=== PATIENT | female | born 1955 | race Caucasian/White ===

== ENCOUNTER 2024-05-14 10:30 | Outpatient (AMB) | payer OTHER, SELFPAY ==
[2024-05-14 10:36] VITALS: BP 142/82; PULSE 92; O2SAT 98; BMI 32.1
--- NOTE | 2024-05-14 10:36 | A.OFFVIS_ITS ---
Vital Signs 05/14/24 10:36 Height 5 ft 2.5 in Weight 178 lb 2 oz BMI 32.1 BP 142/82 H Blood Pressure Location Lt brachial Position Sitting Pulse 92 Pulse Source Pulse Oximeter Pulse Oximetry (%) 98 Oxygen Delivery Method Room Air Intake Visit Reasons: Arthralgia/ATC MR RECIEVED Intake Note: Patient presents today for joint pain follow up on joint pain/osteoarthritis. She was last seen on 09/13/23 at [facility] by Dr. Villatoro. Allergies rituximab [From Rituxan] Allergy (Mild, Verified 05/13/24 10:00) Rash chemotherapy Allergy (Mild, Uncoded 05/13/24 10:00) Hives HPI HPI Arthralgia/ATC MR RECIEVED: Details: Doing well. Continues to have swelling in hands. Tolerable. Function is not limited. Right 3rd finger is triggering. Oncologist is monitoring her white cell count very closely. At this time there has been no change in her treatment. She had an infection in her white cell climbed up to 99,000. She will be seeing oncologist in June. Physical Exam Vital Signs: Last Vital Signs Pulse 92 05/14/24 10:36 BP 142/82 H 05/14/24 10:36 Pulse Ox 98 05/14/24 10:36 Oxygen Delivery Method Room Air 05/14/24 10:36 BMI result Body Mass Index 32.1 Const Other: General: Comfortable CVS: RRR Respiratory: clear to auscultation bilaterally. Good respiratory effort Skin: No lesions seen MSK: Triggering of right 3rd finger noted. Tender to palpate palmar aspect of right 3rd MCP with nodule palpated. Chronic synovial thickening right 2nd and 3rd MCP with tenderness on palpation. She has volar subluxation of MCPs with slight ulnar deviation. She is able to health and safety consultant my hands. Shoulder abduction is 160 degrees with good internal and external rotation. Tender to palpate bilateral knees. She has hypertrophy of knee joints. Bilateral Knee flexions are 100 degrees. Bilateral ankle edema. Office Procedures AMB Joint Injection/Aspiration Joint Injection/Aspiration Details: Right 3rd trigger finger Prep: site was prepped using aseptic technique Injected: 10 mg of, Kenalog, with 0.25 mL of and 1% plain lidocaine Procedure: The patient tolerated the procedure well. Postprocedure protocol was discussed with patient. Coding Additional procedure code (CPT) needed (CPT code 06906) AMB Joint Injection/Aspiration Joint Injection/Aspiration Details: Right 3rd MCP Prep: site was prepped using aseptic technique Injected: 10 mg of, Kenalog, with 0.25 mL of and 1% plain lidocaine Procedure: The patient tolerated the procedure well. Postprocedure protocol was discussed with patient. Coding 35765 - Small Joint Procedure code (CPT) selection complete AMB Joint Injection/Aspiration Joint Injection/Aspiration Details: Right 2nd MCP Prep: site was prepped using aseptic technique Injected: 10 mg of, Kenalog, with 0.25 mL of and 1% plain lidocaine Procedure: The patient tolerated the procedure well. Postprocedure protocol was discussed with patient. Coding - Small Joint Procedure code (CPT) selection complete Office Meds lidocaine (PF) 10 mg/mL (1 %) injection solution Performing Provider: Farooq Villatoro MD Performing Location: [facility] Administered by: Farooq Villatoro MD on 05/14/24 21:21 Dose Route Admin Location Dispensed Lot Number Expiration Date [facility] Rn Acute Dialysis 2.5 mg Infiltration 5 mL [id number] HUONS/VGYAAN Kenalog 40 mg/mL suspension for injection Performing Provider: Farooq Villatoro MD Performing Location: [facility] Administered by: Farooq Villatoro MD on 05/14/24 21:21 Dose Route Admin Location Dispensed Lot Number Expiration Date [facility] Rn Acute Dialysis 10 mg Tendon Sheath Inj. 1 mL [id number] [employer] lidocaine (PF) 10 mg/mL (1 %) injection solution Performing Provider: Farooq Villatoro MD Performing Location: [facility] Administered by: Farooq Villatoro MD on 05/14/24 21:33 Dose Route Admin Location Dispensed Lot Number Expiration Date [facility] Rn Acute Dialysis 2.5 mg Infiltration 5 mL [id number] HUONS/VGYAAN Kenalog 40 mg/mL suspension for injection Performing Provider: Farooq Villatoro MD Performing Location: [facility] Administered by: Farooq Villatoro MD on 05/14/24 21:33 Dose Route Admin Location Dispensed Lot Number Expiration Date [facility] Rn Acute Dialysis 10 mg intra-articular 1 mL [id number] [employer] lidocaine (PF) 10 mg/mL (1 %) injection solution Performing Provider: Farooq Villatoro MD Performing Location: [facility] Administered by: Farooq Villatoro MD on 05/14/24 21:33 Dose Route Admin Location Dispensed Lot Number Expiration Date [facility] Rn Acute Dialysis 2.5 mg Infiltration 5 mL [id number] HUJOY/YONATHAN Kenalog 40 mg/mL suspension for injection Performing Provider: Farooq Villatoro MD Performing Location: [facility] Administered by: Farooq Villatoro MD on 05/14/24 21:33 Dose Route Admin Location Dispensed Lot Number Expiration Date [facility] Rn Acute Dialysis 10 mg intra-articular 1 mL [id number] [facility] Assessment & Plan Assessment & Plan (1) Calcium pyrophosphate deposition disease (CPPD): Comment: Crystal proven involving episodic joint pain and swelling of MCPs and left knee. 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 she was unable to tolerate higher dose of colchicine. She has background of CLL with white cell count trending up in the last year. I would avoid DMARD therapy with consideration of her CLL history due to risk of bone marrow suppression. Prednisone has a risk of causing leukocytosis. We discussed trying targeted approach with intra-articular cortisone injections of right 2nd and 3rd MCP. Patient agrees with plan. Code(s): M11.20 - Other chondrocalcinosis, unspecified site Category: Medical Plan: Labs for drug monitoring on colchicine reviewed from 04/05/2024. Lab requisition given to patient to have done at [facility], where she has frequent labs done for CLL monitoring. Continue colchicine 0.6 mg b.i.d. Patient received intra-articular cortisone injections to right 2nd and 3rd MCP Return to clinic in 6 months (2) Trigger finger, right middle finger: Comment: We discussed diagnosis and management. She has history of left 3rd trigger finger, which resolved cortisone injection 2020. Code(s): M65.331 - Trigger finger, right middle finger Category: Medical Plan: Patient received cortisone injection to right 3rd flexor tendon sheath for management of trigger finger Return to clinic in 6 months (3) Other correction (current) drug therapy: Code(s): Z79.899 - Other manager long term care (current) drug therapy Category: Medical Plan: See above Orders: Orders Aspartate Amino Transferase Today Z79.60 - detention (current) use of unspecified immunomodulators and immunosuppressants Complete Blood Count Auto Diff Today Z79.60 - petroleum terminal plant operator (current) use of unspecified immunomodulators and immunosuppressants Alanine Aminotransferase Today Z79.60 - petroleum terminal plant operator (current) use of unspecified immunomodulators and immunosuppressants Alanine Aminotransferase 11/10/24 Z79.60 - petroleum terminal plant operator (current) use of unspecified immunomodulators and immunosuppressants Alanine Aminotransferase 05/09/25 Z79.60 - detention (current) use of unspecified immunomodulators and immunosuppressants Alanine Aminotransferase 11/05/25 Z79.60 - petroleum terminal plant operator (current) use of unspecified immunomodulators and immunosuppressants Creatinine 11/10/24 Z79.60 - detention (current) use of unspecified immunomodulators and immunosuppressants Creatinine 05/09/25 Z79.60 - detention (current) use of unspecified immunomodulators and immunosuppressants Complete Blood Count Auto Diff Today Z79.60 - petroleum terminal plant operator (current) use of unspecified immunomodulators and immunosuppressants Complete Blood Count Auto Diff 11/10/24 Z79.60 - petroleum terminal plant operator (current) use of unspecified immunomodulators and immunosuppressants Complete Blood Count Auto Diff 05/09/25 Z79.60 - detention (current) use of unspecified immunomodulators and immunosuppressants Aspartate Amino Transferase 05/09/25 Z79.60 - detention (current) use of unspecified immunomodulators and immunosuppressants AMB Joint Injection/Aspiration Today M65.331 - Trigger finger, right middle finger AMB Joint Injection/Aspiration Today M11.20 - Other chondrocalcinosis, unspecified site Alanine Aminotransferase Today Z79.60 - petroleum terminal plant operator (current) use of unspecified immunomodulators and immunosuppressants Creatinine Today Z79.60 - detention (current) use of unspecified immunomodulators and immunosuppressants Creatinine Today Z79.60 - detention (current) use of unspecified immunomodulators and immunosuppressants Creatinine 11/05/25 Z79.60 - detention (current) use of unspecified immunomodul ators and immunosuppressants Complete Blood Count Auto Diff 11/05/25 Z79.60 - detention (current) use of unspecified immunomodulators and immunosuppressants Aspartate Amino Transferase Today Z79.60 - detention (current) use of unspecified immunomodulators and immunosuppressants Aspartate Amino Transferase 11/10/24 Z79.60 - petroleum terminal plant operator (current) use of unspecified immunomodulators and immunosuppressants Aspartate Amino Transferase 11/05/25 Z79.60 - petroleum terminal plant operator (current) use of unspecified immunomodulators and immunosuppressants AMB Joint Injection/Aspiration Today M11.20 - Other chondrocalcinosis, unspecified site, Z79.899 - Other correction (current) drug therapy Coding Level of Care Code Est Pt Level 4 (67141) Complex EM visit Add On G2211 Diagnoses Calcium pyrophosphate deposition disease (CPPD) M11.20 Trigger finger, right middle finger M65.331 Other manager long term care (current) drug therapy Z79.899 CPT Codes Coding - 89077 - Small joint: 36519 - Small Joint ([id number]) Coding - 49296 - Small joint: 75982 - Small Joint ([id number])
--- OUTSIDE RECORDS SUMMARY | 2024-05-14 11:32 | XMS_ITS | Clinical Summary ---
Author Organization [facility] Address [address] [place] [address] Care Team Providers Care Fiberglass Roller Name Role Phone Yas Madera MD Primary Care Provider Allergies Active Allergy Reactions Criticality Noted Date Comments Rituximab 11/23/2016 rash Medications Medication Sig Dispensed Refills Start Date End Date Status levothyroxine (SYNTHROID, LEVOXYL) tablet 75 mcg Take 1 tablet (75 mcg total) by mouth every morning on an empty stomach. 0 Active Vitamin D, Cholecalciferol, 1000 UNITS CAPS Take 1,000 Units by mouth daily. 0 Active lisinopril (PRINIVIL,ZESTRIL) tablet 30 mg Take 1 tablet (30 mg total) by mouth daily. 0 Active hydrochlorothiazide (HYDRODIURIL) tablet 25 mg Take 1 tablet (25 mg total) by mouth daily. 0 Active atorvastatin (LIPITOR) tablet 10 mg Take 1 tablet (10 mg total) by mouth every evening. 0 Active Loratadine 10 MG CAPS Take by mouth. 0 Active metFORMIN (GLUCOPHAGE) tablet 1000 mg Take 1 tablet (1,000 mg total) by mouth 2 (two) times a day with meals. 0 Active colchicine 0.6 MG tablet Take 1 tablet (0.6 mg total) by mouth daily. 0 Active PARoxetine (PAXIL) 20 MG tablet TAKE ONE TABLET BY MOUTH EVERY DAY 90 tablet 3 09/05/2023 Active ibrutinib (IMBRUVICA) 420 MG tablet Take 1 tablet (420 mg total) by mouth daily 30 tablet 5 09/26/2023 Active Active Problems Problem Noted Date Diagnosed Date Hypokalemia 03/03/2022 Type II or unspecified type diabetes mellitus with renal manifestations, not stated as uncontrolled(250.40) 07/06/2017 Generalized edema 11/10/2016 Urticaria 10/19/2016 CLL (chronic lymphocytic leukemia) 10/13/2016 Osteoarthritis of both knees 11/20/2015 Overview: Overview: R > L Osteopenia 11/20/2015 Overview: Overview: BMD 01/29/14 2019- unchanged Vitamin D deficiency 11/20/2015 HTN (hypertension) 08/24/2015 Hyperlipidemia 08/24/2015 Hypothyroidism 08/24/2015 Family History Medical History Relation Name Comments Cancer Father Relation Name Status Comments Father Social History Tobacco Use Types Packs/Day Years Used Date Smoking Tobacco: Former Smokeless Tobacco: Never Alcohol Use Standard Drinks/Week Comments No 0 (1 standard drink = 0.6 oz pur e alcohol) Sex and Gender Information Value Date Recorded Sex Assigned at Not on file Gender Identity Not on file Sexual Orientation Not on file Job Start Date Occupation Industry Not on file Not on file Not on file Last Filed Vital Signs Vital Sign Reading Time Taken Comments Blood Pressure 149/74 12/20/2023 10:40 AM EDT Pulse 96 12/20/2023 10:40 AM EDT Temperature 36.6 ??C (97.8 ??F) 12/20/2023 10:40 AM E DT Respiratory Rate - - Oxygen Saturation 99% 12/20/2023 10:40 AM EDT Inhaled Oxygen Concentration - - Weight 82.7 kg (182 lb 6.4 oz) 12/20/2023 10:40 AM EDT Height 162.6 cm (5' 4 ) 12/20/2023 10:40 AM EDT Body Mass Index 31.31 12/20/2023 10:40 AM EDT Plan of Treatment Health Maintenance Due Date Last Done Comments Hepatitis C Screening 1953 Depression Screening 1965 BMI Counseling 11/22/1971 Preventative Health Evaluation 11/22/1971 Shingrix-Zoster Vaccine (1 of 2) 1972 Colon Cancer Screening (Colonoscopy) 1998 Breast Cancer Screening (Mammogram) 11/22/2003 RSV Adult > 60+ Yrs or (1 - Risk 60-74 years 1-dose series) 2013 Fall Risk Assessment 2018 Osteoporosis Screening (DEXA Scan) 2018 COVID-19 Vaccine ( season) 2023 04/13/2021, 09/29/2020, 09/08/2020 Influenza Vaccine (#1) 2023 3, 02/09/2021, 03/06/2019, Additional history exists DTap / Tdap / Td (2 - Td or Tdap) 12/01/2025 12/02/2015 Pneumococcal Vaccine Completed 09/09/2022, 11/30/19 19 Hepatitis B Vaccines Aged Out No long er eligible based on patient's age to complete this topic RSV Ped < 20 months Aged Out No longe r eligible based on patient's age to complete this topic Care Teams Fiberglass Roller Relationship Specialty Start Date End Date Yas Madera MD [address] [place] [id number] PCP - General Family Medicine 12/01/21
--- OUTSIDE RECORDS SUMMARY | 2024-05-14 11:32 | XMS_ITS | Encounter Summary ---
Author Organization [employer] Address [address] [place] [address] Care Team Providers Care Foam Rubber Curer Name Role Phone Yas Madera MD Primary Care Provider Reason for Visit * Reason Comments Cough Rib pain, cough Encounter Details Date Type Department Care Team ([facility] st Contact Info) Description 04/18/2024 11:00 AM EST Office Visit [facility] [place] [address] [place] [phone] Brandy Crandall NP [address] [place] [address] Upper respiratory tract infection, unspecified type (Primary Dx) Social History Tobacco Use Types Packs/Day Years Used Date Smoking Tobacco: Former Smokeless Tobacco: Never Alcohol Use Standard Drinks/Week Comments No 0 (1 standard drink = 0.6 oz pur e alcohol) Sex and Gender Information Value Date Recorded Sex Assigned at Female 03/20/2024 3:46 PM EST Gender Identity Female 03/20/2024 3:46 PM EST Sexual Orientation Straight 05/06/2024 1: 38 PM EST Job Start Date Occupation Industry Not on file Not on file Not on file documented as of this encounter Last Filed Vital Signs Vital Sign Reading Time Taken Comments Blood Pressure 95/47 04/18/2024 11:08 AM EST Pulse 104 04/18/2024 11:08 AM EST Temperature 37.8 ??C (100 ??F) 04/18/2024 11:08 AM ES T Respiratory Rate - - Oxygen Saturation 96% 04/18/2024 11:08 AM EST Inhaled Oxygen Concentration - - Weight - - Height - - Body Mass Index - - documented in this encounter Ordered Prescriptions Prescription Sig Dispensed Refills Start Date End Da amoxicillin-clavulanate (AUGMENTIN) 875-125 mg per tablet Take 1 tablet by mouth 2 (two) times a day for 10 days. 20 each 04/18/2024 04/28/2024 documented in this encounter Progress Notes * Brandy Crandall NP - 04/18/2024 11:00 AM EST CHIEF COMPLAINT: Cough (Rib pain, cough) HPI: Shara Ortiz is a 68 y.o. old female who presents with sinus pain pressure cough x 1 week Patient had vasovagal episode yesterday blood pressure low in the office today ROS: Remainder of the 12 point review of symptoms unremarkable except for those idenitified in the HPI. PAST MEDICAL HISTORY: Patient Active Problem List Diagnosis Date Noted Hypokalemia 03/03/2022 Mild episode of recurrent major depressive disorder ([facility]) 11/08/2021 Pseudogout 03/05/2020 COVID-19 virus infection 08/02/2019 Type II or unspecified type diabetes mellitus with renal manifestations, not stated as uncontrolled(250.40) ([facility]) 07/06/2017 Generalized edema 11/10/2016 Urticaria 10/19/2016 Osteoarthritis of both knees 11/20/2015 Osteopenia 11/20/2015 Vitamin D deficiency 11/20/2015 CLL (chronic lymphocytic leukemia) ([facility]) 08/24/2015 Hypothyroidism 08/24/2015 Hyperlipidemia 08/24/2015 HTN (hypertension) 08/24/2015 Primary hypertension 08/24/2015 Past Surgical History: Procedure Laterality Date TOTAL KNEE ARTHROPLASTY PROCEDURE:TOTAL KNEE ARTHROPLASTY TUBAL LIGATION PROCEDURE:TUBAL LIGATION SOCIAL HISTORY: Social History Tobacco Use Smoking status: Former Smokeless tobacco: Never Substance Use Topics Alcohol use: No FAMILY HISTORY: Family History Problem Relation Name Age of Onset Cancer Father Family Status Relation Name Status Father (Not Specified) No partnership data on file MEDICATIONS DISCONTINUED/REORDERED: There are no discontinued medications. ACTIVE MEDICATIONS: No outpatient medications have been marked as taking for the 04/18/24 encounter (Office Visit) with Brandy Crandall NP. ALLERGIES: Allergies Allergen Reactions Rituximab rash PHYSICAL EXAM: Vitals: 04/18/24 1108 BP: (!) 95/47 Pulse: 104 Temp: 37.8 ??C (100 ??F) SpO2: 96% CONSTITUTIONAL: alert, calm, cooperative, in no acute distress HEAD: normocephalic, atraumatic EYES: pupils equal, round, reactive to direct and consensual light, accommodation reflex present, extraocular movement intact (EOMI), sclera non-icteric EARS: auditory canal clear, tympanic membrane intact and clear with anterior light reflex, no air-fluid levels bilaterally NOSE: septum intact, no lesions, turbinates red boggy discharge ORAL CAVITY: mucosa moist, gums normal, palate normal, tongue midline THROAT: no erythema, no exudate, pharynx normal, tonsils normal, uvula midline NECK/THYROID: neck range of motion grossly intact LYMPH: no cervical or supraclavicular lymphadenopathy SKIN: warm and dry HEART: S1, S2 normal, regular rate and rhythm, no murmurs, rubs, gallops LUNGS: clear to auscultation bilaterally, no wheezes, rales, rhonchi PSYCH: mood/affect full range, speech clear, good eye contact, cooperative with exam LABS/IMAGING: IMPRESSION: Sinusitis PLAN: The patient's PMH, problem list and medications were reviewed in reference to the above diagnosis/diagnoses. *. Based on History, ROS, HPI and PE, covid test performed (negative). *. Based on HPI, ROS and PE, suggestive of bacterial sinusitis. *. Prescribed Augmentin. Educated patient to complete entire course of antibiotic. Proper dosing and method to take medication addressed with patient. The risks and benefits of this medication were discussed with the patient. The patient understands the potential side effects and basic interactionsof this medication. The patient is asked to call me or my colleagues if they begin to experience any difficulties with this medication. *. Educated pt to rest,proper hydration, warm steamy showers *. Advised to follow up with PCP in 14 days, if symptoms are not improving. Advised to follow up with PCP immediately for new or worsening symptoms. *. Discussed warnings signs and symptoms that would require immediate follow up at UC/ER. Patient verbalized understanding and agreement with the plan. Patient to monitor blood pressure at home and contact PCP if any further dizziness lightheaded or continued low BP Advised to follow up with PCP if symptoms do not improve. Advised to follow up with UC or PCP immediately for new or worsening symptoms. Educated on red flags symptoms. Advised to go to the ER or call 911 for these symptoms. Patient understands the plan. Patient verbalizes agreement with the plan. No orders of the defined types were placed in this encounter. Brandy Crandall NP on 04/18/2024 at 11:30 AM EST Today's documentation was made using voice recognition software. This note may contain grammatical errors secondary to this software. documented in this encounter Plan of Treatment Upcoming Encounters Date Type Department Care Team (Late st Contact Info) Description 05/23/2024 9:45 AM EST Office Visit [facility] Medicine [facility] [address] [place] [phone] Yas Madera MD [address] [place] [address] 06/17/2024 10:30 AM EST Office Visit [facility] Hematology Oncology [address] [place] [phone] Eriberto Galindo MD [address] [place] [address] documented as of this encounter Procedures Procedure Name Priority Date/Time Associated Diagnosis Comments POC RAPID [id number], MOLECULAR Routine 04/18/2024 11:38 AM EST Upper respiratory tract infection, unspecified type POC RESPIRATORY SYNCYTIAL VIRUS Routine 04/18/2024 11:38 AM EST Upper respiratory tract infection, unspecified type documented in this encounter Results * Poc Rapid [id number], MOLECULAR (04/18/2024 11:38 AM EST) COVID-19/SARS- COV-2 Rapid POC Negative Negative Swab Nasopharyngeal structure / Unknown 04/18/2024 11:38 AM EST Brandy Crandall ITEM REPAIR MANAGER POINT OF CARE TEST E NTER/EDIT ORDERABLES * (ABNORMAL) POC respiratory syncytial virus manually resulted (04/18/2024 11:38 AM EST) RSV Rapid AG POC Negative Negative Swab Nasopharyngeal structure / Unknown 04/18/2024 11:38 AM EST Brandy Crandall ITEM REPAIR MANAGER POINT OF CARE TEST E NTER/EDIT ORDERABLES documented in this encounter Visit Diagnoses Diagnosis Upper respiratory tract infection, unspecified type- Primary documented in this encounter Additional Health Concerns Infection Onset Date Last Indicated Resolved Time RSV 04/18/2024 04/18/2024 05/12/2024 7:06 PM EST Assessment Noted Time PHQ-9 Depression Total Score: 0 02/21/20 24 11:22 AM EST documented as of this encounter Care Teams Foam Rubber Curer Relationship Specialty Start Date End Date Yas Madera MD [address] [place] [id number] PCP - General Internal Medicine 07/02/21 documented as of this encounter
--- OUTSIDE RECORDS SUMMARY | 2024-05-14 11:32 | XMS_ITS | Continuity of Care Document ---
Author Organization [facility] go[facility] Address [address] [place] [address] Phone Care Team Providers Care Card Hanger Name Role Phone Dg Herrera MD Unavailable Unavailable Allergies, Adverse Reactions, Alerts Substance Reaction Status Criticality No Known Allergies Active No Inform ation Medications Medication Instructions Dosage Effective Dates (start - stop) Status Comments No Drug Therapy Prescribed Problems Condition Type Effective Dates (start - stop) Clini jerardo Status Comments No Known Problems Procedures Procedure Date OV, Estab Pt, Level III OV, Estab Pt, Level IV Excision Palate Lsn,Uvula W/O Close OV, New Pt, Level III Laryngoscopy Flexible Diagnostic 2021 Advance Directives Directive Yes / No Effective Date File Name No Information Encounters Encounter Description Practice Location Reason(s) For Visit Diagnoses Date Provider Providers Copied on Encounter OV, Estab Pt, Level III [facility], [address], [place], [place], [id number] , [place] [phone] [facility] Follow Up (chief complaint) Leukoplakia of oral mucosa, including tongueGastro-esoph ageal reflux disease without esophagitis [address], [place], [place], [id number] , [place]. tel:[phone] OV, Estab Pt, Level IV [facility], [address], [place], [place], [id number] , [place] tel: [phone] [facility] Follow Up (chief complaint) Gastro-esophageal reflux disease without esophagitisLeukopl elie of oral mucosa, including tongue [address] , [address] [place] [address], [id number] , [place]. tel:[phone] OV, New Pt, Level III [facility], [address], [place], [place], [id number] , [place] tel: [phone] [facility] oral lesion (chief complaint) Oral leukoplakiaGastro- esophageal reflux disease without esophagitis [address], [address], [place], [id number] , [place]. tel:[phone] Family History Family Member Type Diagnosis Age At Onset Mother Problem (finding) Hearing loss Mother Problem (finding) raised blood lipids Payers Payer name Insurance type Covered democrat ID Authoriza tion(s) Medicare [facility] [id number] [facility] EPO PPO CI [id number] Social History Type Description Quantity Date Captured Comments Alcohol Use Details 1-4 / week weekly Caffeine Use Details Tobacco Use Status Smoking Status Light tobacco smoker Smoking Tobacco Use Details Cigarette: Years Used 30 Cigarette: 0 Packs per day, Pack Year: 7.5 Sex Female Vital Signs Date / Time: Height Weight BMI Pulse Rate Blood Pressure Temperature Respiratory Rate Body Surface Area Head Circumference Head Circ. Percentile Wt./[place]. Percentile BMI percentile Pulse Ox Inhaled Ox 1:06 PM 65.00 in 61.235 kg (135.00 lbs) 22.4 6 kg/m eter (2) 12 /min Chief Complaint And Reason For Visit From encounter dated '06/09/2021 13:10'. Follow Up (chief complaint). Description: Onset: 3 weeks ago. Duration: 3 Weeks. The location is Hard palate. Severity level is moderate. It occurs constantly. The problem is with no change.Follow-upof right hard palate [id number] reported as benign, encourage patient to continue not s moking. 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 Initially 3 focal patches of leukoplakia over the maxillary spine noted. No history of repetitivetrauma orally.. Reason For Referral Reason For Referral No Information Plan Of Treatment Date Type Action Status Goal Tobacco cessation counseling completed Goal Tobacco cessation counseling completed Goal Tobacco cessation counseling completed History Of Present Illness Encounter Date Complaint History Of Prese nt Illness Follow Up Onset: 3 weeks a go. Duration: 3 Weeks. The location is Hard palate. Severity level is moderate. It occurs constantly. The problem is with no change.Follow-up of right hard palate [id number] reported as benign, encourage patient to continue not smoking. 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 Initially 3 focal patches of leukoplakia over the maxillary spine noted. No history of repetitive trauma orally.. Follow Up Onset: 6 days ag o. Duration: 6 Days. The location is Palate. Severity level is moderate. It occurs constantly. The problem is with no change.Patient has started stopping tobacco. 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 Prior heavy tobacco but now intermittent tobacco still. 3 focal patches of leukoplakia over the maxillary spine noted. No history of repetitive trauma orally. oral lesion Onset was 2 days ago. Duration is 2 Days. Severity is moderate. The problem is unchanged. It occurs constantly. Location is hard palate. Pertinent negatives include bleeding from site, dysphagia, fever and otalgia. Additional information: exposure to dyes/heavy metals/acid fumes; white lesion hard palate noted by ALESHIA [address] Ck Stevens ref'd ENT. 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 Prior heavy tobacco but now intermittent tobacco still. 3 focal patches of leukoplakia over the maxillary spine noted. No history of repetitive trauma orally. Rest of head and neck exam was negative for cancer including laryngoscopy. We will schedule excisional biopsy.. 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 Related to Gastro-esophageal reflux disease without esophagitis Stop tobaccoSchedule appointment for excisional biopsy Related to Oral leukoplakia Assessments Type Assessment Date assessment Leukoplakia of oral mucosa, incl uding tongue assessment Gastro-esophageal reflux disease without esophagitis impression Follow-up of right h haley palate [id number] reported as benign, encourage patient to continue not smoking. 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 Initially 3 focal patches of leukoplakia over the maxillary spine noted. No history of repetitive trauma orally.. Mental Status Date Cognitive Assessment Orientation - [place] ed to time, place, person, situation. Patient Care Teams Name Effective Dates (start - stop) Status Members No Information
--- OUTSIDE RECORDS SUMMARY | 2024-05-14 11:32 | XMS_ITS | Encounter Summary ---
Author Organization [employer] Address [address] [place] [address] Care Team Providers Care Trade Recruiter Name Role Phone Yas Madera MD Primary Care Provider Reason for Referral * Imaging (Routine) - Closed Specialty Diagnoses / Procedures Referred By Merna lama Referred To Contact Radiology Diagnoses CLL (chronic lymphocytic leukemia) (CMS/HCC) Procedures CT Chest/Abdomen/Pelvis w Contrast Eriberto Yao MD [address] [place] [address] [phone] Referral ID Status Reason Start Date Expiration Date Visits Re quested Visits Authorized [id number] Closed 03/19/2024 03/19/2025 1 1 Reason for Visit * Reason Comments Follow-up Encounter Details Date Type Department Care Team (Latest Contact Info) Description 03/19/2024 10:45 AM EST Office Visit [facility] Hematology Oncology [address] [place] [phone] Eriberto Yao MD [address] [place] [phone] CLL (chronic lymphocytic leukemia) (CMS/HCC) (Primary Dx); Acquired hypothyroidism; Primary hypertension; Primary osteoarthritis of both knees Social History Tobacco Use Types Packs/Day Years [...] Sign Reading Time Taken Comments Blood Pressure 128/62 03/19/2024 10:48 AM EST Pulse 100 03/19/2024 10:48 AM EST Temperature 36.6 ??C (97.9 ??F) 03/19/2024 10:[address] Respiratory Rate - - Oxygen Saturation 100% 03/19/2024 10:48 AM EST Inhaled Oxygen Concentration - - Weight 80.1 kg (176 lb 9.6 oz) 03/19/2024 10:48 AM EST Height - - Body Mass Index 28.94 02/26/2024 9:04 AM EST documented in this encounter Progress Notes * Eriberto Yao MD - 03/19/2024 10:45 AM ESTAddended by: ERIBERTO YAO on: 05/01/2024 03:23 PM Modules accepted: Orders * Eriberto Yao MD - 03/19/2024 10:45 AM EST Images from the original note were not included. CHIEF COMPLAINT: Chief Complaint Patient presents with Follow-up CLL/SLL Regimen #1-rituximab/Treanda September 2016 Regimen [id number] 2019 IDENTIFIER:Shara Ortiz is a 68 y.o. female. HPI: The patient returns for follow up of CLL/SLL For details of initial diagnosis and follow up until FEB 16, 2024- please refer to notes from prior [facility] last note dated 12/20/2023 Patient returns for follow-up after lab work. Concerned about increased WBC count. Overall she feels well. She has occasional diarrhea related to ibrutinib, controlled with loperamide, but had recentmild weight loss about 4 pounds. She has not noticed any lymphadenopathy or chills fevers or nighttime sweats. Discussion regarding restaging imaging, patient is willing to do, will order for April. The following is copied, reviewed and edited Cancer Staging No matching staging information was found for the patient. Oncology History No history exists. Patient was previously following with Dr. Cagle/Dr. Michel, after initial diagnosis in early 2013 Her previous treatment for CLL including rituximab and/Treanda on September 2016 Currently continues on ibrutinib 420 mg daily, tolerating it well She started Imbruvica in October 2018, completed nearly 5 years completed She has had some improvement in her arthritis over the last few months. However she had an episode of gastrointestinal disturbance, diarrhea lasting about a month. She had increasing blood sugar, currently on metformin 2 g, and magnesium as well, she takes magnesium on a few days during the week. She lost about 6 pounds in weight. She has not noticed any lymphadenopathy. She had lab work performed and is here for follow-up. White count increased slightly to 52, however stable hemoglobin and platelets She has occasional skin bruising. No further episodes of pseudogout, uses colchicine. Plan to continue monitoring labs at 3-month interval, she agrees Although she is concerned about elevated WBC count, reviewed labs in detail, there is no neutropenia, hemoglobin level platelets are normal, therefore reassuring. Chronic medical conditions, essential hypertension, T2DM, depression, hyperlipidemia, pseudogout etc. appear to be stable. Treatments, clinical trials were discussed with the patient, such as venetoclax/obinutuzumab After review of lab work, continue Imbruvica for now, she agrees She was concerned about rituximab allergy, it appears to have been a infusion reaction and slow recovery of WBC count, she may be able to use the medication in future as needed or may use obinutuzumab with precautions. From Dr. Michel note 04/2021 PLAN -- 65 y.o. 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 In August and September 2016, the patient developed fatigue and a blood count showed rapid escalation with total white blood count over 200,000/mm?? hemoglobin 10 g perce nt platelet count remained normal. At that point he reviewed options for therapy including the FCR combination, Rituxan and Treanda combination, and oral Imbruvica. His own preference at that time hermila 60-year-old was the Rituxan and Treanda combination. In the absence of the 17 P deletion,he felt that the FCR combination toxic and potentially yielded significant morbidity. Imbruvica however requires a lifelong commitment and despite its oral administration, it remains fabulously expensive. He therefore advised consideration of the Rituxan and Treanda program which can generate long-term remissions that do not require maintenance therapy. Patient received cycle 1 of Rituxan Treanda on 09/15/2016. She did experience malaise and fatiguepPeaking during the second week of the month. However she remained fully active and independently functional. She returned 4 weeks later for cycle 2 feeling much better.. Hematologic parameters had dramatically improved with a white blood count down from the pretreatment level over 200,000/mm?? to 10,600 split almost equally between neutrophils and lymphocytes. Ms. Ortiz developed urticaria after cycle 2 which consisted of standard dose Rituxan with Treanda. She responded to treatment with a Medrol Dosepak, potential causes were all the drugs that Ms. Ortiz was on including Rituxan and Treanda Bactrim, Uloric but the temporal sequence and the probabilities suggested to Dr Cagle that Rituxan was the probable cause so that he advised treatment with Treanda as a single agent. Ms. Ortiz did receive day 1 of Treanda but then returned on day 2 November 11 with diffuse erythema and itching suggesting an acute allergic reaction. Accordingly Treanda was stopped and when her lymphocyte count jesus again I early 2018 she was started on Imbruvica in Jul. 10/24/2018: feels well after 3 months of therapy with Imbruvica. Intermittent arthralgias. Uric acid 5.5 on aloopurinol 150 mg/day, allopurinol stopped ROS: GENERAL: No malaise, significant weight loss or fever NECK: No lumps, goiter, pain or significant neck swelling RESPIRATORY: No cough, wheezing or shortness of breath CARDIOVASCULAR: No chest pain, leg swelling or palpitations GI: No abdominal discomfort, blood in stools or black stools MUSCULOSKELETAL: No joint pain or swelling, back pain, or muscle pain. HEMATOLOGY/LYMPHOLOGY No prolonged bleeding, easy bruisability or swollen nodes Other Systems review is non contributory PAST MEDICAL HISTORY: Active Ambulatory Problems Diagnosis Date Noted CLL (chronic lymphocytic leukemia) ([facility]) 08/24/2015 Generalized edema 11/10/2016 Hypothyroidism 08/24/2015 Hypokalemia 03/03/2022 Hyperlipidemia 08/24/2015 HTN (hypertension) 08/24/2015 Osteoarthritis of both knees 11/20/2015 Osteopenia 11/20/2015 Type II or unspecified type diabetes mellitus with renal manifestations, not stated as uncontrolled(250.40) ([facility]) 07/06/2017 Urticaria 10/19/2016 Vitamin D deficiency 11/20/2015 Primary hypertension 08/24/2015 COVID-19 virus infection 08/02/2019 Pseudogout 03/05/2020 Mild episode of recurrent major depressive disorder ([facility]) 11/08/2021 Resolved Ambulatory Problems Diagnosis Date Noted No Resolved Ambulatory Problems Past Medical History: Diagnosis Date Anemia Hypertension Leukemia ([facility]) SOCIAL HISTORY: Social History Tobacco Use Smoking status: Former Smokeless tobacco: Never Substance Use Topics Alcohol use: No FAMILY HISTORY: Family History Problem Relation Name Age of Onset Cancer Father Current Outpatient Medications: atorvastatin (LIPITOR) 10 mg tablet, Take 1 Tablet by mouth daily., Disp: , Rfl: cholecalciferol (VITAMIN D-3) 25 mcg (1,000 unit) capsule, Take 1,000 Units by mouth daily., Disp: , Rfl: colchicine (COLCRYS) 0.6 mg tablet, Take 0.6 mg by mouth daily., Disp: , Rfl: hydroCHLOROthiazide (HYDRODIURIL) 25 mg tablet, TAKE ONE TABLET BY MOUTH EVERY DAY, Disp: , Rfl: ibrutinib (Imbruvica) 420 mg tablet, Take 1 tablet (420 mg total) by mouth 1 (one) time each day, Disp: 28 tablet, Rfl: 5 ketorolac (ACULAR) 0.5 % ophthalmic solution, INSTILL 1 DROP INTO THE OPERATIVE EYE TWO TIMES A DAY. START 2 DAYS PRIOR TO SURGERY, Disp: , Rfl: levothyroxine (SYNTHROID, LEVOTHROID) 75 mcg tablet, TAKE ONE TABLET BY MOUTH EVERY DAY, Disp: 90 tablet, Rfl: 1 lisinopriL (PRINIVIL,ZESTRIL) 30 mg tablet, TAKE ONE TABLET BY MOUTH EVERY DAY, Disp: 90 tablet, Rfl: 1 loratadine (CLARITIN) 10 mg tablet, Take 1 Tablet by mouth daily., Disp: , Rfl: metFORMIN (GLUCOPHAGE) 500 mg tablet, Take 2 tablets (1,000 mg total) by mouth 2 (two) times a day with meals., Disp: , Rfl: PARoxetine (PAXIL) 20 mg tablet, TAKE ONE TABLET BY MOUTH EVERY DAY, Disp: , Rfl: Allergies Allergen Reactions Rituximab rash PHYSICAL EXAM: Visit Vitals BP 128/62 (BP Location: Left arm, Patient Position: Sitting, BP Cuff Size: Large adult) Pulse 100 Temp 36.6 ??C (97.9 ??F) (Temporal) Wt 80.1 kg (176 lb 9.6 oz) SpO2 100% BMI 28.94 kg/m?? OB Status Postmenopausal Smoking Status Former BSA 1.89 m?? APPEARANCE: Alert and in no acute distress EYES: PERRL, conjunctiva pink and sclera are Normal without icterus ORAL CAVITY: No erythema or exudates NECK: Neck supple, no adenopathy, HEART: RRR with normal S1 and S2, no murmurs, no gallops, no JVD appreciated LUNG: clear to auscultation bilaterally Percussion note normal LYMPH NODES: No palpable superficial adenopathy ABDOMEN: Bowel sounds normoactive, no bruits, soft, non-tender, without organomegaly or palpable masses EXTREMITIES: Extremities warm and well perfused without clubbing, cyanosis, rash or edema NEURO: Oriented X 3, no focal weakness; sensation is normal LABS: Review of Lab results , interpreted No results found for: WBC , HGB , HCT , MCV , PLT No results found for: NA , K , CL , CO2 , GLUCOSE , BUN , CREATININE , CALCIUM , PROT , ALBUMIN , BILITOT , AST , ALT , URICACID , PHOS , MG , ALKPHOS , CKTOTAL , EGFR Review of Imaging, interpreted DXA BONE DENSITY STUDY 1+ SITS AXIAL SKEL BONE DENSITY Lumbar Spine T-score is -0.2 (SD relative to 20-29 y/o adult) Z-score is +1.7 (SD relative to age matched peers) This is normal by criteria defined by the WHO. Left Hip T-score is -1.7 Z-score is +0.0 This is consistent with osteopenia by criteria defined by the WHO. %. Impression: Based on the World Health Organization criteria, Cristel Ortiz should be classified as having osteopenia. This patient has a 14% risk of major osteoporotic fracture and a 1.8% risk of hip fracture over the next 10 years. (World Health Organization Fracture Risk Assessment) [facility] Department of Internal Medicine recommends using National Osteoporosis Foundation (NOF) guidelines in treatment decisions related to osteoporosis. NOF guidelines suggest considering treatment for postmenopausal women and men aged 50 or older presenting with the following: History of hip or vertebral fracture. T-score less than or equal to -2.5 (DXA) at the femoral neck, total hip, or spine, after appropriate evaluation to exclude secondary causes. Low bone mass (T-score between -1.0 and -2.5 at the femoral neck or spine) AND a 10-year probability of a hip fracture greater than or equal to 3% OR a 10-year probability of a major osteoporosis-related fracture greater than or equal to 20% based on the [place]-adapted WHO algorithm Please note that all treatment decisions require clinical judgment and consideration of individual patient factors, including patient preferences, co- morbidities, previous drug use, risk factors not captured in the FRAX model (e.g., frailty, falls, vitamin D deficiency, increased bone turnover, interval significant decline in bone density) and possible under- or over-estimation of fracture risk by FRAX. Review of External Documentation Tests ordered - IMPRESSION: 1. CLL (chronic lymphocytic leukemia) ([facility]) 2. Acquired hypothyroidism 3. Primary hypertension 4. Primary osteoarthritis of both knees PLAN: 68 -year-old lady with CLL, initial diagnosis in 2013, chemotherapy in 2017, followed by ibrutinib since October 2018 Intermediate prognosis, trisomy 12 positive Previously following with Dr. Michel, transferred care [place] upon [place] halfway #1 systemic therapy-- Prior treatment with rituximab/Treanda noted, was in 2017 Currently on Imbruvica, tolerating it quite well. No significant cytopenias On ibrutinib since October 2018 approximately 5 years, noticed increase in WBC count Refill sent in today, tablets 420 mg, 1 daily WBC count has increased over the last few months, latest is 75.4, previous 52. Lymphocytosis at 68%however no anemia or thrombocytopenia, therefore reassuring WBC count has stabilized over the last 3 months, reassured If she develops any r significant lymphadenopathy or B symptoms such as weight loss or night sweats, can consider treating with rituximab and venetoclax. Long COVID symptoms appears to improved #2 lab monitoring, continue CBC-D, CMP, LDH every 3 months--latest labs from earlier this month Lymphocytosis has recurred, concerning for gradual dose or loss of response Continue monitoring every 3 months latest labs reviewed and a copy given Patient agrees with the monitoring plan Will plan imaging studies for any clinical progression or symptoms, patient is educated regarding symptoms and signs of disease progression -- Discussed with the patient regarding imaging, as she has had progressive lymphocytosis I will request CT chest, abdomen, pelvis Prior history of potential rituximab allergy noted, will have to initiate treatment with venetoclax, and after a few weeks once her WBC count decreases, at that time may consider rituximab, if she has any symptomatic progression, lymphadenopathy or B symptoms. Patient agrees No B symptoms at this time, reassuring #3 hypokalemia-resolved without recurrence Latest potassium level is normal, reassured #4 COVID-19,, had 2 episodes, unvaccinated Recent respiratory infection may also have been COVID versus parainfluenza #5 weight loss, reviewed, continue to monitor closely #6 arthritis, pseudogout, on colchicine, well-controlled, no recent episodes follows with Dr. Villatoro concern regarding neutropenia noted, none currently #7 -X1TC-vl metformin, follows with PCP, recent dose increase and subsequent diarrhea episodes noted, appear to be subsiding, weight loss noted #8 essential eahkykcolwjz-fhuu-jpuuzllnpx on HCTZ, lisinopril, improved after weight loss #9 hypogammaglobulinemia-IgG level low a 358, previously 397, improved slightly monitor closely forany infection episodes. Follow-up in 3 months sooner if new issues arise,, patient is in agreement with this plan Pain Control--no issues Health Care Proxy--her Eriberto Yao MD Cc Yas Madera MD documented in this encounter Plan of Treatment Upcoming Encounters Date Type Department Care Team (Late st Contact Info) Description 05/23/2024 9:45 AM EST Office Visit Adult Medicine - [address] [phone] Yas Madera MD [address] [place] [address] 06/17/2024 10:30 AM EST Office Visit [facility] Hematology Oncology [address] [place] [phone] Eriberto Yao MD [address] [place] [phone] Scheduled Orders Name Type Priority Associated Diagnoses Orde r Schedule Ferritin Lab Routine CLL (chronic lymphocytic leukemia) ([facility]) Every 8 weeks for 6 Occurrences starting 05/01/2024 until 05/01/2025 Immunoglobulin IgG Lab Routine CLL (chronic lymphocytic leukemia) ([facility]) Every 8 weeks for 6 Occurrences starting 05/01/2024 until 05/01/2025 Lactate dehydrogenase Lab Routine CLL (chronic lymphocytic leukemia) ([facility]) Every 8 weeks for 6 Occurrences starting 05/01/2024 until 05/01/2025 Comprehensive metabolic panel Lab Routine CLL (chronic lymphocytic leukemia) ([facility]) Every 8 weeks for 6 Occurrences starting 05/01/2024 until 05/01/2025 CBC and differential Lab Routine CLL (chronic lymphocytic leukemia) ([facility]) Every 8 weeks for 6 Occurrences starting 05/01/2024 until 05/01/2025 documented as of this encounter Results * CT Chest/Abdomen/Pelvis w Contrast (05/06/2024 2:29 PM EST) Anatomical Region Laterality Modality Body Computed Tomogra phy 05/12/2024 2:5 6 PM EST Impressions 05/12/2024 3:17 PM EST The most recent available for comparison is 2017. There has been significant interval improvement. No new measurable disease ?? -------- FINAL REPORT -------- Dictated By: Anderson Pugh Dictated Date: 05/12/2024 14:56 ET Assigned Physician: Anderson Pugh Reviewed and Electronically Signed By: Anderson Pugh Signed Date: 05/12/2024 15:17 ET Workstation ID: [id number] Transcribed By: Self Edit Transcribed Date: 05/12/2024 14:56 ET Narrative 05/12/2024 3:17 PM EST EXAMINATION: CT CHEST, ABDOMEN and PELVIS WITH CONTRAST CLINICAL INFORMATION: Lymphadenopathy. ??Non-Hodgkin lymphoma. Small lymphocytic lymphoma follow-up. CLL COMPARISON: Portions of a previous study 08/17/2016 ?? TECHNIQUE: Multidetector CT. Examination of the chest, abdomen and pelvis. Multidetector CT. Examination of the chest, abdomen and pelvis following IV administration of nonionic contrast. Reformatting in the coronal and sagittal planes. DLP: 1567 mGy-cm Dose optimization was performed including the use of low-dose iterative reconstruction technique with automatic exposure control based on patient size. Type of contrast: ISOVUE 370 Volume of IV contrast: 90 mL Volume of contrast discarded: 0 mL FINDINGS: LUNG: No abnormality of the trachea or mainstem bronchi. There are no findings which are suspicious for pulmonary lymphoma. There are a few scattered stable micronodules which do not require any specific imaging follow-up. There are some scattered centrilobular nodules and some small cysts. Correlate with any history of smoking. No evidence of acute pneumonia ?? MEDIASTINUM: ??There are no new enlarged mediastinal lymph nodes. There is an approximately 0.9 cm right hilar lymph node which is likely unchanged. Left pericardiophrenic lymph node 05/06/2024-0.5 cm () 08/17/2016-1.0 cm CARDIAC: The heart is not enlarged. No pericardial fluid or thickening ?? CORONARY CALCIFICATION: Marked coronary calcification VASCULAR: There is no thoracic aortic aneurysm. The main pulmonary artery is normal caliber ?? PLEURAL: There is no pleural fluid or pneumothorax ?? AXILLA/CHEST WALL: There are prominent bilateral axillary lymph nodes. These have improved since 08/17/2016 Right axillary lymph node 05/06/2024-0.6 cm (08/01) 08/17/2016-1.6 cm ?? Left axillary lymph node 1.4 cm (07/28) 08/17/2016 2.9 cm There are some nonenlarged lymph nodes the base of the neck. These have decreased in size. LIVER: The right lobe of the liver measures 16.4 cm. No suspicious focal liver lesion. The liver contour is smooth. ?? BILIARY TRACT: ??No opaque gallstone. No biliary dilation. SPLEEN: The spleen measures 12.6 cm. On 08/17/2016 the spleen measures at least 21.5 cm. No suspicious focal abnormality. ?? PANCREAS: No suspicious mass. No surrounding fluid. ?? ADRENAL GLANDS: No suspicious abnormality. ?? KIDNEYS: There is no dilation of the intrarenal collecting system on either side. The nephrograms are symmetric. No suspicious mass. ?? GASTROINTESTINAL TRACT: Contrast throughout the colon. No localized colonic wall thickening. No small bowel dilation. The stomach is not well distended. There are some nonspecific right lower quadrant lymph nodes. A publications sales representative right lower quadrant mesenteric lymph node measures 1.3 cm (4/141). ?? URINARY BLADDER: ??The bladder is nearly empty. No focal abnormality. PELVIC VISCERA: ??There are uterine masses some of which are calcified. The largest in the left side of the uterus measures approximately 4.5 cm. This is likely a fibroid. ABDOMINAL WALL: No significant hernia is appreciated. ?? LYMPHOVASCULAR STRUCTURES AND FLUID: There is no abdominal aortic aneurysm. There is some atherosclerotic calcification. There has been interval decrease in the retroperitoneal lymph nodes a lymph node adjacent to the proximal right common iliac artery is no longer measurable. On 08/17/2016 this measured at least 1.4 cm. A right external iliac lymph node 05/06/2024-1.1 cm (4/188) 08/17/2016-2.4 cm Left common femoral lymph nodes 05/06/2024-1.0 cm (4/189) 08/17/2016-2.2 cm ?? MUSCULOSKELETAL: No acute or suspicious osseous abnormality. ??There are degenerative changes including the spine. There is moderate anterolisthesis of L5 upon S1 with bilateral L5 spondylolysis. Procedure Note Anderson Pugh MD - 05/12/2024 EXAMINATION: CT CHEST, ABDOMEN and PELVIS WITH CONTRAST CLINICAL INFORMATION: Lymphadenopathy. Non-Hodgkin lymphoma. Small lymphocytic lymphomafollow-up. CLL COMPARISON: Portions of a previous study 08/17/2016 TECHNIQUE: Multidetector CT. Examination of the chest, abdomen and pelvis. Multidetector CT. Examination of the chest, abdomen and pelvis followingIV administration of nonionic contrast. Reformatting in the coronal and sagittal planes. DLP: 1567 mGy-cm Dose optimization was performed including the use of low-dose iterativereconstruction technique with automatic exposure control based on patientsize. Type of contrast: ISOVUE 370 Volume of IV contrast: 90 mL Volume of contrast discarded: 0 mL FINDINGS: LUNG: No abnormality of the trachea or mainstem bronchi. There are no findings which are suspicious for pulmonary lymphoma. There are a few scattered stable micronodules which do not require anyspecific imaging follow-up. There are some scattered centrilobular nodules and some small cysts.Correlate with any history of smoking. No evidence of acute pneumonia MEDIASTINUM: There are no new enlarged mediastinal lymph nodes. There isan approximately 0.9 cm right hilar lymph node which is likelyunchanged. Left pericardiophrenic lymph node 05/06/2024-0.5 cm () 08/17/2016-1.0 cm CARDIAC: The heart is not enlarged. No pericardial fluid or thickening CORONARY CALCIFICATION: Marked coronary calcification VASCULAR: There is no thoracic aortic aneurysm. The main pulmonary arteryis normal caliber PLEURAL: There is no pleural fluid or pneumothorax AXILLA/CHEST WALL: There are prominent bilateral axillary lymph nodes.These have improved since 08/17/2016 Right axillary lymph node 05/06/2024-0.6 cm (08/01) 08/17/2016-1.6 cm Left axillary lymph node 1.4 cm (07/28) 08/17/2016 2.9 cm There are some nonenlarged lymph nodes the base of the neck. These havedecreased in size. LIVER: The right lobe of the liver measures 16.4 cm. No suspicious focalliver lesion. The liver contour is smooth. BILIARY TRACT: No opaque gallstone. No biliary dilation. SPLEEN: The spleen measures 12.6 cm. On 08/17/2016 the spleen measures atleast 21.5 cm. No suspicious focal abnormality. PANCREAS: No suspicious mass. No surrounding fluid. ADRENAL GLANDS: No suspicious abnormality. KIDNEYS: There is no dilation of the intrarenal collecting system oneither side. The nephrograms are symmetric. No suspicious mass. GASTROINTESTINAL TRACT: Contrast throughout the colon. No localizedcolonic wall thickening. No small bowel dilation. The stomach is not welldistended. There are some nonspecific right lower quadrant lymph nodes. Arepresentative right lower quadrant mesenteric lymph node measures 1.3 cm(141). URINARY BLADDER: The bladder is nearly empty. No focal abnormality. PELVIC VISCERA: There are uterine masses some of which are calcified. Thelargest in the left side of the uterus measures approximately 4.5 cm. Thisis likely a fibroid. ABDOMINAL WALL: No significant hernia is appreciated. LYMPHOVASCULAR STRUCTURES AND FLUID: There is no abdominal aorticaneurysm. There is some atherosclerotic calcification. There has been interval decrease in the retroperitoneal lymph nodes alymph node adjacent to the proximal right common iliac artery is no longermeasurable. On 08/17/2016 this measured at least 1.4 cm. A right externaliliac lymph node 05/06/2024-1.1 cm (4/188) 08/17/2016-2.4 cm Left common femoral lymph nodes 05/06/2024-1.0 cm (4/189) 08/17/2016-2.2 cm MUSCULOSKELETAL: No acute or suspicious osseous abnormality. There aredegenerative changes including the spine. There is moderateanterolisthesis of L5 upon S1 with bilateral L5 spondylolysis. IMPRESSION: The most recent available for comparison is 2017. There has been significant interval improvement. No new measurable disease -------- FINAL REPORT -------- Dictated By: Anderson Pugh Dictated Date: 05/12/2024 14:56 ET Assigned Physician: Anderson Pugh Reviewed and Electronically Signed By: Anderson Pugh Signed Date: 05/12/2024 15:17 ET Workstation ID: [id number] Transcribed By: Self Edit Transcribed Date: 05/12/2024 14:56 ET Subramony Subramonia-Maricruz ADLER IMG CT PROC EDURES documented in this encounter Visit Diagnoses Diagnosis CLL (chronic lymphocytic leukemia) (CMS/HCC)- Primary Chronic lymphoid leukemia, without mention of having achieved remission Acquired hypothyroidism Unspecified hypothyroidism Primary hypertension Unspecified essential hypertension Primary osteoarthritis of both knees CLL (chronic lymphocytic leukemia) (CMS/HCC) Chronic lymphoid leukemia, without mention of having achieved remission documented in this encounter Additional Health Concerns Infection Onset Date Last Indicated Resolved Time RSV 04/18/2024 04/18/2024 05/12/2024 7:06 PM EST Assessment Noted Time PHQ-9 Depression Total Score: 0 02/21/20 24 11:22 AM EST documented as of this encounter Care Teams Trade Recruiter Relationship Specialty Start Date End Date Yas Madera MD [address] [place] [address] PCP - General Internal Medicine 07/02/21 documented as of this encounter
--- OUTSIDE RECORDS SUMMARY | 2024-05-14 11:32 | XMS_ITS | Clinical Summary ---
Author Organization [facility] Address [address] [place] [address] Phone Care Team Providers Care Laborer Tan [employer] Name Role Phone Yas Madera MD Primary Care Provider Allergies Active Allergy Reactions Criticality Noted Date Comments Rituximab 11/23/2016 rash Medications Medication Sig Dispensed Refills Start Date End Date Status colchicine (COLCRYS) 0.6 mg tablet Take 0.6 mg by mouth daily. 06/12/2020 Active PARoxetine (PAXIL) 20 mg tablet TAKE ONE TABLET BY MOUTH EVERY DAY 09/19/2022 Active cholecalciferol (VITAMIN D-3) 25 mcg (1,000 unit) capsule Take 1,000 Units by mouth daily. Active ketorolac (ACULAR) 0.5 % ophthalmic solution INSTILL 1 DROP INTO THE OPERATIVE EYE TWO TIMES A DAY . START 2 DAYS PRIOR TO SURGERY 11/24/2023 Active levothyroxine (SYNTHROID, LEVOTHROID) 75 mcg tablet TAKE ONE TABLET BY MOUTH EVERY DAY 90 tablet 1 03/11/2024 Active lisinopriL (PRINIVIL,ZESTRIL ) 30 mg tablet TAKE ONE TABLET BY MOUTH EVERY DAY 90 tablet 1 03/11/2024 Active hydroCHLOROthiazi de (HYDRODIURIL) 25 mg tablet TAKE ONE TABLET BY MOUTH EVERY DAY 90 tablet 1 03/20/2024 Active ibrutinib (Imbruvica) 420 mg tabletIndications :chronic lymphocytic leukemia Take 1 tablet (420 mg total) by mouth 1 (one) time each day 28 tablet 5 03/13/2024 Active metFORMIN (GLUCOPHAGE) 500 mg tablet TAKE TWO TABLETS BY MOUTH TWICE A DAY WITH MEALS 360 tablet 03/22/2024 Active atorvastatin (LIPITOR) 10 mg tablet TAKE ONE TABLET BY MOUTH EVERY DAY 90 tablet 04/11/2024 Active loratadine (CLARITIN) 10 mg tablet TAKE ONE TABLET BY MOUTH EVERY DAY 90 tablet 1 05/07/2024 Active loratadine (CLARITIN) 10 mg tablet Take 1 Tablet by mouth daily. 02/21/2023 5 Discontinued amoxicillin-clavu lanate (AUGMENTIN) 875-125 mg per tablet Take 1 tablet by mouth 2 (two) times a day for 10 days. 20 each 04/18/2024 5 Active Problems Problem Noted Date Diagnosed Date Hypokalemia 03/03/2022 Mild episode of recurrent major depressive disor kirsten 11/08/2021 Pseudogout 03/05/2020 Overview (01/23/2024): Dr. Villatoro. Has family hx RA in two children but she is neg. Colchicine 0.6mg bid COVID-19 virus infection 08/02/2019 Overview (01/23/2024): 07/10/2019- detected Type II or unspecified type diabetes mellitus with renal manifestations, not stated as uncontrolled(250.40) 07/06/2017 Generalized edema 11/10/2016 Urticaria 10/19/2016 Osteoarthritis of both knees 11/20/2015 Overview (06/26/2023): R > L Overview: R > L Osteopenia 11/20/2015 Overview (06/26/2023): BMD 01/29/14. 2019- unchanged 2021- 14% risk of major osteoporotic fracture and a 1.8% risk of hip fracture over the next 10 years Overview: BMD 01/29/14. 2019- unchanged Vitamin D deficiency 11/20/2015 CLL (chronic lymphocytic leukemia) 08/24/2015 Overview (06/26/2023): Follows with Dr Cagle at [facility] oncology, diagnosed in September 2013 Hypothyroidism 08/24/2015 Hyperlipidemia 08/24/2015 HTN (hypertension) 08/24/2015 Primary hypertension 08/24/2015 Encounters Date Type Department Care Team Description 05/06/2024 1:38 PM EST - 05/06/2024 11:59 PM EST Hospital Encounter [facility] CT Scan [address] [place] [id number] CLL (chronic lymphocytic leukemia) ([facility]) Discharge Disposition: Home or Self Care 04/18/2024 11:00 AM EST Office Visit Walk-In Clinic [facility] [address] [place] [address] Brandy Crandall NP Upper respiratory tract infection, unspecified type (Primary Dx) 04/18/2024 Telephone Adult Medicine - [place] [address] [place] [address] Yas Madera MD triage call back; Pneumonia 03/19/2024 10:45 AM EST Office Visit [facility] Hematology Oncology [address] [place] [address] Eriberto Gayle MD CLL (chronic lymphocytic leukemia) ([facility]) (Primary Dx); Acquired hypothyroidism; Primary hypertension; Primary osteoarthritis of both knees 02/26/2024 9:00 AM EST Consult Adult Medicine - [address] [address] Vinicio Calderon PA Cataract of both eyes, unspecified cataract type (Primary Dx); Type II or unspecified type diabetes mellitus with renal manifestations, not stated as uncontrolled(250.40) ([facility]); Mixed hyperlipidemia; CLL (chronic lymphocytic leukemia) ([facility]); Hypothyroidism, unspecified type; Primary hypertension from Last 3 Months Immunizations Name Administration Dates Next Due Influenza Quadravalent, MDCK , 0.5ml, with preservative (Flucelvax) 6mo and older 02/09/2018,04/05/2017 Influenza trivalent, 0.5mL ( Fluad) 65yo and older 02/26/2024 Influenza trivalent, 0.5mL ( Fluzone High-dose) 65yo and older 01/10/2023,02/09/2021,03/06/2019 Influenza trivalent, with pr eservative (Fluzone; Afluria) 6mo and older 05/30/2016 Glider SARS-CoV-2 COVID-19, mRNA, LNP-S, preservative free 04/13/2021,09/29/2020,09/08/2020 Pneumococcal conjugate 20 va lent (Prevnar 20, PCV 20) 2mo and older 09/09/2022 Pneumococcal polysaccharide 23 valent (Pneumovax 23) 2yo and older 11/29/2018 Tdap Tetanus diptheria acell ular pertussis (Boostrix; Adacel) 7yo and older 12/02/2015 Surgical History Surgery Date Site/Laterality Comments TOTAL KNEE ARTHROPLASTY PROCEDURE:TOTAL KNEE ARTHROPLASTY TUBAL LIGATION PROCEDURE:TUBAL LIGATION Medical History Medical History Date Comments Leukemia (CMS/HCC) DX:Leukemia ( HCC) Hypertension DX:Hypertension Anemia DX:Anemia Family History Medical History Relation Name Comments [...] file Not on file Not on file Obstetrics History Last Filed Vital Signs Vital Sign Reading Time Taken Comments Blood Pressure 95/47 04/18/2024 11:08 AM EST Pulse 104 04/18/2024 11:08 AM EST Temperature 37.8 ??C (100 ??F) 04/18/2024 11:08 AM ES T Respiratory Rate - - Oxygen Saturation 96% 04/18/2024 11:08 AM EST Inhaled Oxygen Concentration - - Weight 80.1 kg (176 lb 9.6 oz) 03/19/2024 10:48 AM EST Height 166.4 cm (5' 5.5 ) 02/26/2024 9:04 AM EST Body Mass Index 28.94 02/26/2024 9:04 AM EST Plan of Treatment Upcoming Encounters Date Type Department Care Team (Late st Contact Info) Description 05/23/2024 9:45 AM EST Office Visit Adult Medicine [facility] [address] [place] [address] Yas Madera MD [address] [place] [address] 06/17/2024 10:30 AM EST Office Visit [facility] Hematology Oncology [address] [place] [address] Monroe-Eriberto Alcantara MD [address] [place] [address] Health Maintenance Due Date Last Done Comments Breast Cancer Screening 1955 Zoster Vaccines (1 of 2) 1972 RSV Immunization Patients 60+ Years Old (1 - Risk 60-74 years 1-dose series) 2013 Colorectal Cancer Screening: Colonoscopy 03/25/2022 Social Influencers of Health Screening 03/25/2022 COVID-19 Vaccine ( season) 2023 02/25/2023, 04/13/2021, 09/29/2020, Additional history exists Diabetes: Annual Retina Eye Exam 01/11/2024 01/10/2023 Falls Risk Assessment 01/12/2024 01/11/2023 Medicare Annual Wellness Visit 01/12/2024 01/11/2023 Diabetes: Annual Foot Exam 05/12/2024 05/12/2023 Diabetes: Blood Sugar Control Test (HGBA1C) 05/22/2024 11/20/2023, 11/20/2023 Diabetes: Annual Urine Albumin-Creatinine Ratio (uACR) 11/19/2024 11/20/2023 Diabetes: Annual GFR (Glomerular Filtration Rate) 11/19/2024 11/20/2023, 11/20/2023 Hypertension/CHF/CAD Annual BMP Blood Test 11/19/2024 11/20/2023, 11/20/2023 Depression Screening 02/20/2025 02/21/2024, 01/12/20 23 DTaP,Tdap,and Td Vaccines (2 - Td or Tdap) 12/01/2025 12/02/2015 Cholesterol Screening (Lipid Panel) 11/19/2028 11/20/2023, 11/20/2023 Osteoporosis Screening (Bone Density Screening) 12/03/2031 12/02/2021 Hepatitis C Screening Completed 08/24/2015 Pneumococcal Vaccine: 65+ Years Completed 09/09/2022, 11/29/2018 Influenza Vaccine Completed 02/26/2024, , 02/09/2021, Additional history exists HIB Vaccines Aged Out No longer eligi ble based on patient's age to complete this topic HPV Vaccines Aged Out No longer eligi ble based on patient's age to complete this topic Hepatitis A Vaccines Aged Out No long er eligible based on patient's age to complete this topic Hepatitis B Vaccines Aged Out No long er eligible based on patient's age to complete this topic IPV Vaccines Aged Out No longer eligi ble based on patient's age to complete this topic MMR Vaccines Aged Out No longer eligi ble based on patient's age to complete this topic Meningococcal ACWY Vaccine Aged Out N o longer eligible based on patient's age to complete this topic RSV Immunization Patients Under 20 months Aged Out No longer eligible based on patient's age to complete this topic Varicella Vaccines Aged Out No longer eligible based on patient's age to complete this topic Procedures Procedure Name Priority Date/Time Associated Diagnosis Comments CT CHEST/ABDOMEN/PELVIS W CONTRAST Routine 05/06/2024 2:29 PM EST CLL (chronic lymphocytic leukemia) ([facility]) POC RAPID [id number], MOLECULAR Routine 04/18/2024 11:38 AM EST Upper respiratory tract infection, unspecified type POC RESPIRATORY SYNCYTIAL VIRUS Routine 04/18/2024 11:38 AM EST Upper respiratory tract infection, unspecified type URINE ALBUMIN CREATININE RATIO Routine 11/20/2023 ANNUAL BMP BLOOD TEST Routine 11/20/2023 HEMOGLOBIN A1C Routine 11/20/2023 LIPID PANEL Routine 11/20/2023 DIABETES FOOT EXAM Routine 05/12/2023 DEPRESSION SCREENING Routine 01/11/2023 FALLS RISK ASSESSMENT Routine 01/11/2023 DIABETES EYE EXAM Routine 01/10/2023 DXA BONE DENSITY STUDY 1+ SITS AXIAL SKEL Routine 12/02/2021 1:52 PM EDT Other specified disorders of bone density and structure, unspecified site HEPATITIS C SCREENING Routine 08/24/2015 from Last 3 Months or Most Recently Relevant to Health Maintenance Results * CT Chest/Abdomen/Pelvis w Contrast (05/06/2024 2:29 PM EST) Anatomical Region Laterality Modality Body Computed Tomogra phy 05/12/2024 2:56 PM EST Impressions 05/12/2024 3:17 PM EST The most recent available for comparison is 2016. There has been significant interval improvement. No new measurable disease ?? -------- FINAL REPORT -------- Dictated By: Anderson Pugh Dictated Date: 05/12/2024 14:56 ET Assigned Physician: Anderson Pugh Reviewed and Electronically Signed By: Anderson Pugh Signed Date: 05/12/2024 15:17 ET Workstation ID: [id number] Transcribed By: Self Edit Transcribed Date: 05/12/2024 [...] nonspecific right lower quadrant lymph nodes. A event sales representative right lower quadrant mesenteric lymph [...] Signed Date: 05/12/2024 15:17 ET Workstation ID: [id number] Transcribed By: Self Edit Transcribed Date: 05/12/2024 14:56 ET Eriberto Galindo MD IMG CT PROC EDURES * Poc Rapid [id number], MOLECULAR (04/18/2024 11:38 AM EST) [facility] COVID-19/SARS- COV-2 Rapid POC Negative Negative Swab Nasopharyngeal structure / Unknown 04/18/2024 11:38 AM EST Brandy Crandall BEATER LEAD POINT OF CARE TEST E NTER/EDIT ORDERABLES * (ABNORMAL) POC respiratory syncytial virus manually resulted (04/18/2024 11:38 AM EST) [facility] RSV Rapid AG POC Negative Negative Swab Nasopharyngeal structure / Unknown 04/18/2024 11:38 AM EST Brandy Crandall BEATER LEAD POINT OF CARE TEST E NTER/EDIT ORDERABLES * HM Urine Albumin Creatinine Ratio (11/20/2023) [facility] Urine Albumin Creatinine Ratio abstracted Historical Provider [facility] Annual BMP Blood Test (11/20/2023) [facility] Annual BMP Blood Test abstracted Historical Provider [facility] (ABNORMAL) Hemoglobin A1c (11/20/2023) [facility] Hemoglobin A1C 7.1(A) 6.5 % Blood Venous blood specimen / Unknown Historical Provider LAB BLOOD ORDERAB LES * (ABNORMAL) Lipid panel (11/20/2023) [facility] LDL/HDL Ratio 4 0 - 4 Triglycerides 171(A) 0 - 150 mg/dL Cholesterol 172 0 - 200 mg/dL HDL 45 40 mg/dL LDL Cholesterol 93 0 - 100 mg/dL Blood Venous blood specimen / Unknown Historical Provider LAB BLOOD ORDERAB LES * Diabetes Foot Exam (05/12/2023) [facility] Diabetes: Annual Foot Exam abstracted Historical Provider [facility] Falls Risk Assessment (01/11/2023) [facility] Falls Risk Assessment abstracted [facility] Provider [facility] Depression Screening (01/11/2023) [facility] Depression Screening abstracted Historical Provider [facility] Diabetes Eye Exam (01/10/2023) [facility] Diabetes: Annual Retina Eye Exam abstracted [facility] Provider [facility] DXA BONE DENSITY STUDY 1+ SITS AXIAL SKEL (12/02/2021 1:52 PM EDT) Anatomical Region Laterality Modality Bone Densitometr y 08/09/2021 11:3 9 AM EDT Narrative 12/02/2021 5:36 PM EDT BONE DENSITY ? Lumbar Spine T-score is -0.2 ?? (SD relative to 20-29 y/o adult) Z-score is +1.7 ??(SD relative to age matched peers) This is [...] (World Health Organization Fracture Risk Assessment) [facility] Department of Internal Medicine recommends using National [...] of individual patient factors, including patient preferences, co-morbidities, previous drug use, risk factors not captured in the FRAX model (e.g., frailty, falls, vitamin D deficiency, increased bone turnover, interval significant decline in bone density) and possible under- or over-estimation of fracture risk by FRAX. Procedure Note Karen Nassar MD - 04/05/2022 BONE DENSITY Lumbar Spine T-score is -0.2 (SD relative to 20-29 y/o adult) Z-score is +1.7 (SD relative to age matched peers) This is normal by criteria defined by the WHO. Left Hip T-score is -1.7 Z-score is +0.0 This is consistent with osteopenia by criteria defined by the WHO. %. Impression: Based on the World Health Organization criteria, Cristel Vázquezould be classified as having osteopenia. This patient has a 14% risk ofmajor osteoporotic fracture and a 1.8% risk of hip fracture over the next10 years. (World Health Organization Fracture Risk Assessment) [facility] Department of Internal Medicine recommendsusing National Osteoporosis Foundation (NOF) guidelines in treatmentdecisions related to osteoporosis. NOF guidelines suggest consideringtreatment for postmenopausal women and men aged 50 or older presentingwith the following: History of hip or vertebral fracture. T-score less than or equal to -2.5 (DXA) at the femoral neck, total hip,or spine, after appropriate evaluation to exclude secondary causes. Low bone mass (T-score between -1.0 and -2.5 at the femoral neck or spine)AND a 10-year probability of a hip fracture greater than or equal to 3% ORa 10-year probability of a major osteoporosis-related fracture greaterthan or equal to 20% based on the [place]-adapted WHO algorithm Please note that all treatment decisions require clinical judgment andconsideration of individual patient factors, including patientpreferences, co-morbidities, previous drug use, risk factors not capturedin the FRAX model (e.g., frailty, falls, vitamin D deficiency, increasedbone turnover, interval significant decline in bone density) and possibleunder- or over-estimation of fracture risk by FRAX. Adalgisa REYES [facility] DXA PROCEDURES * Hepatitis C Screening (08/24/2015) [facility] Hepatitis C Screening abstracted Historical Provider MD JACKELYN Marte from Last 3 Months or Most Recently Relevant to Health Maintenance Care Teams Laborer Tan House Relationship Specialty Start Date End Date Yas Madera MD [address] [facility] [address] [place] [address] PCP - General Internal Medicine 07/02/21
--- OUTSIDE RECORDS SUMMARY | 2024-05-14 11:32 | XMS_ITS | Continuity of Care Document ---
Author Organization [facility] Address [address] [place], [place] Phone Care Team Providers Care Pecan Sheller Name Role Phone Matthew Hector MD Unavailable Unavailable Allergies, Adverse Reactions, Alerts Substance Reaction Status Criticality No Known Allergies Active No Inform ation Procedures Procedure Date OFFICE/OUTPATIENT VISIT, EST INITIAL HOSPITAL CARE SUBSEQUENT HOSPITAL CARE SUBSEQUENT HOSPITAL CARE HOSPITAL DISCHARGE DAY OFFICE/OUTPATIENT VISIT, [facility] Advance Directives Directive Yes / No Effective Date File Name No Information Encounters Encounter Description Practice Location Reason(s) For Visit Diagnoses Date Provider Providers Copied on Encounter OFFICE/OUTPA TIENT VISIT, EST [facility], [address], [place], [place], [id number] , tel:[phone] [facility] Surgical Office Diverticulitis hosp f/u (chief complaint)Dive rticulitis (chief complaint) Sigmoid diverticuliti s [address] [place], [place], [id number], [place]. tel:[phone] Referring Provider: Matthew eHctor, [address] [place], [address] . tel:[phone] INITIAL HOSPITAL CARE [facility], [address], [place], [place], [id number] , [phone] [facility] No Information [address] [place], [place], [id number], [place]. tel:[phone] Referring Provider: Matthew Hector, [address] [place], [address] . tel:[phone] OFFICE/OUTPA TIENT VISIT, [facility] Hospitali sts/Meeti [facility], [address], [facility], [place], [id number] , [place] tel:[phone] [facility] AMB Surg No Information Shahab Mark. [address] [place], [place], [id number], [place]. tel:[phone] Referring Provider: Deedee Dorantes, [address] [place], [address] . tel:[phone] Family History Family Member Type Diagnosis Age At Onset No Information Payers Payer name Insurance type Covered republican ID Authoriza tion(s) Medicare [id number] I CI [id number] Social History Type Description Quantity Date Captured Comments Alcohol Use Details No Caffeine Use Details coffee 2 cups per day Tobacco Use Status Light cigarette smok er (1-9 cigs/day) Smoking Status Light tobacco smoker Smoking Tobacco Use Details Cigarette: Age Started: 15 Cigarette: 2 Cigarettes per day Sex Female Vital Signs Date / Time: Height Weight BMI Pulse Rate Blood Pressure Temperature Respiratory Rate Body Surface Area Head Circumference Head Circ. Percentile Wt./[place]. Percentile BMI percentile Pulse Ox Inhaled Ox 1:13 PM 64.00 in 60.781 kg (134.00 lbs) 23.0 0 kg/m eter (2) 122/80 mm[Hg] 97.70 F Chief Complaint And Reason For Visit From encounter dated '09/08/2022 13:15'. Diverticulitis hosp f/u (chief complaint) Diverticulitis (chief complaint). Description: Severity of symptoms is severe. Location of pain: left lower quadrant. The pain radiates to the Suprapubic. The pain is cramping. Associated symptoms include anorexia, bloating, change in bowel habits, diarrhea and urinary frequency. Pertinent negatives include fecaluria, fever, hematochezia, hematuria and leg pain. Additional information: Hospitalized for several days, IV antibiotics etc. Responded well to this treatment. Seen now for follow up. Reason For Referral Reason For Referral No Information Plan Of Treatment Date Type Action Status Goal Hepatitis C screening. Due o n due Goal Tobacco screening. Due on due Goal FIT-DNA (Cologuard). Due on due Goal Tobacco Follow-Up. Due on due Goal Unhealthy drug use screening . Due on due Goal Sigmoidoscopy. Due on due Goal DEXA scan. Due on 3 due Goal ECG. Due on due Goal Lipid panel. Due on 023 due Goal Shingrix (1st). Due on due Goal CT-Colonography. Due on due Goal Td vaccine. Due on 23 due Goal Influenza vaccine. Due on due Goal Colonoscopy. Due on 023 due Goal Depression screening. Due on due Goal Mammogram. Due on due Goal Depression Follow-Up. Due on due Goal Pneumococcal vaccine. Due on due Goal FIT. Due on due Goal Cognitive Screening. Due on due Goal FOBT. Due on due History Of Present Illness Encounter Date Complaint History Of Prese nt Illness Diverticulitis Severity of symp toms is severe. Location of pain: left lower quadrant. The pain radiates to the Suprapubic. The pain is cramping. Associated symptoms include anorexia, bloating, change in bowel habits, diarrhea and urinary frequency. Pertinent negatives include fecaluria, fever, hematochezia, hematuria and leg pain. Additional information: Hospitalized for several days, IV antibiotics etc. Responded well to this treatment. Seen now for follow up. Diverticulitis hosp f/u Functional Status Date Functional Assessmen t No Information Instructions Date Instruction Additional Infor mation No Information Assessments Type Assessment Date assessment Sigmoid diverticulitis 23 impression 66 yr female has res ponded well to course of IV antibiotics in hospital and po antibiotics post discharge. Reports no abdominal pain, fever, nausea. Progress is satisfactory. Instructions given. Follow up prn Mental Status Date Cognitive Assessment Orientation - [place] ed to time, place, person, situation. Patient Care Teams Name Effective Dates (start - stop) Status Members No Information
--- OUTSIDE RECORDS SUMMARY | 2024-05-14 11:33 | XMS_ITS | Encounter Summary ---
Author Organization Super Address [address] [place] [address] Care Team Providers Care Degreaser Operator Name Role Phone Yas Madera MD Primary Care Provider Reason for Visit * Reason Onset Date Comments triage call back 04/18/2024 Pneumonia 04/18/2024 Encounter Details Date Type Department Care Team ([facility] st Contact Info) Description 04/18/2024 Telephone Adult Medicine [facility] [address] [place] [phone] Yas Madera MD [address] [place], [place] [phone] triage call back; Pneumonia Social History Tobacco Use Types Packs/Day Years [...] on file documented as of this encounter Progress Notes * Naina Reynoso RN - 04/18/2024 9:34 AM EST Spoke with patient. Started with a cold on Monday Temp 100-101 up until yesterday. Fever seems to be gone now . The mucus has settled in chest, ribshurt because of cough. Concerned she may develop pneumonia. Has chronic lymphoid Lukemia Appt scheduled today [facility]. Address given * Hussein Noam - 04/18/2024 9:24 AM EST Pt. Wants to be seen with Dr. Franks. She has chronic lymphoid Lukemia and was told if she was really sick to call in. documented in this encounter Plan of Treatment Upcoming Encounters Date Type Department Care Team (Late st Contact Info) Description 05/23/2024 9:45 AM EST Office Visit Adult Medicine [facility] [address] [place] [phone] Yas Madera MD [address] [place] [address] 06/17/2024 10:30 AM EST Office Visit [facility] Hematology Oncology [address] [place] [phone] Monroe-Eriberto Alcantara MD [address] [place] [phone] documented as of this encounter Visit Diagnoses Not on filedocumented in this encounter Additional Health Concerns Assessment Noted Time PHQ-9 Depression Total Score: 0 02/21/20 24 11:22 AM EST documented as of this encounter Care Teams Degreaser Operator Relationship Specialty Start Date End Date Yas Madera MD [address] [address] PCP - General Internal Medicine 07/02/21 documented as of this encounter
--- OUTSIDE RECORDS SUMMARY | 2024-05-14 11:33 | XMS_ITS | Encounter Summary ---
Author Organization [facility] Address [address] [place] [address] Care Team Providers Care Weblogic Administrator Name Role Phone Yas Madera MD Primary Care Provider Reason for Referral * Imaging (Routine) - Closed Specialty Diagnoses / Procedures Referred By Contac t Referred To Contact Radiology Diagnoses CLL (chronic lymphocytic leukemia) ([facility]/HCC) Procedures CT Chest/Abdomen/Pelvis w Contrast Eriberto Galindo MD [address] [place] [phone] [phone] Referral ID Status Reason Start Date Expiration Date Visits Re quested Visits Authorized [id number] Closed 03/19/2024 03/19/2025 1 1 Reason for Visit * Imaging (Routine) - Closed Specialty Diagnoses / Procedures Referred By Contac t Referred To Contact Radiology Diagnoses CLL (chronic lymphocytic leukemia) ([facility]/HCC) Procedures CT Chest/Abdomen/Pelvis w Contrast Eriberto Galindo MD [address] [place] [phone] [phone] Referral ID Status Reason Start Date Expiration Date Visits Re quested Visits Authorized [id number] Closed 03/19/2024 03/19/2025 1 1 Encounter Details Date Type Department Care Team (Latest Contact Info) Description 05/06/2024 1:38 PM EST - 05/06/2024 11:59 PM EST Hospital Encounter [facility] CT Scan [address] [place] [address] CLL (chronic lymphocytic leukemia) ([facility]) Discharge Disposition: Home or Self Care Social History Tobacco Use Types Packs/Day Years [...] on file documented as of this encounter Medications at Time of Discharge Medication Sig Dispensed Refills Start Date End Date atorvastatin (LIPITOR) 10 mg tablet TAKE ONE TABLET BY MOUTH EVERY DAY 90 tablet 04/11/2024 cholecalciferol (VITAMIN D-3) 25 mcg (1,000 unit) capsule Take 1,000 Units by mouth daily. colchicine (COLCRYS) 0.6 mg tablet Take 0.6 mg by mouth daily. 06/12/2020 hydroCHLOROthiazide (HYDRODIURIL) 25 mg tablet TAKE ONE TABLET BY MOUTH EVERY DAY 90 tablet 1 03/20/2024 ibrutinib (Imbruvica) 420 mg tabletIndications:magneto repairer daljit lymphocytic leukemia Take 1 tablet (420 mg total) by mouth 1 (one) time each day 28 tablet 5 03/13/2024 ketorolac (ACULAR) 0.5 % ophthalmic solution INSTILL 1 DROP INTO THE OPERATIVE EYE TWO TIMES A DAY . START 2 DAYS PRIOR TO SURGERY 11/24/2023 levothyroxine (SYNTHROID, LEVOTHROID) 75 mcg tablet TAKE ONE TABLET BY MOUTH EVERY DAY 90 tablet 1 03/11/2024 lisinopriL (PRINIVIL,ZESTRIL) 30 mg tablet TAKE ONE TABLET BY MOUTH EVERY DAY 90 tablet 1 03/11/2024 loratadine (CLARITIN) 10 mg tablet TAKE ONE TABLET BY MOUTH EVERY DAY 90 tablet 1 05/07/2024 metFORMIN (GLUCOPHAGE) 500 mg tablet TAKE TWO TABLETS BY MOUTH TWICE A DAY WITH MEALS 360 tablet 03/22/2024 PARoxetine (PAXIL) 20 mg tablet TAKE ONE TABLET BY MOUTH EVERY DAY 09/19/2022 loratadine (CLARITIN) 10 mg tablet Take 1 Tablet by mouth daily. 02/21/2023 05/07/2024 documented as of this encounter Discharge Disposition Disposition Code Departure Means Destination Home or Self Care documented in this encounter Plan of Treatment Upcoming Encounters Date Type Department Care Team (Late st Contact Info) Description 05/23/2024 9:45 AM EST Office Visit Adult Medicine [facility] [address] [place] [phone] Yas Madera MD [address] [place] [address] 06/17/2024 10:30 AM EST Office Visit [facility] Hematology Oncology [address] [place] [phone] Eriberto Galidno MD [address] [place] [phone] documented as of this encounter Procedures Procedure Name Priority Date/Time Associated Diagnosis Comments CT CHEST/ABDOMEN/PELVI S W CONTRAST Routine 05/06/2024 2:29 PM EST CLL (chronic lymphocytic leukemia) ([facility]) documented in this encounter Results * CT Chest/Abdomen/Pelvis w [...] Signed Date: 05/12/2024 15:17 ET Workstation ID: [id number] Transcribed By: Self Edit Transcribed Date: 05/12/2024 [...] nonspecific right lower quadrant lymph nodes. A insurance representative right lower quadrant mesenteric lymph node [...] lower quadrant mesenteric lymph node measures 1.3 cm(4/141). URINARY BLADDER: The bladder is nearly empty. [...] Signed Date: 05/12/2024 15:17 ET Workstation ID: [id number] Transcribed By: Self Edit Transcribed Date: 05/12/2024 14:56 ET Subramony Subramonia-Maricruz ADLER IMG CT PROC EDURES documented in this encounter Visit Diagnoses Diagnosis CLL (chronic lymphocytic leukemia) (CMS/HCC) Chronic lymphoid leukemia, without mention of having achieved remission documented in this encounter Administered Medications Inactive Administered Medications - up to 3 most recent administrations Medication Order MAR Action Action Date Dose Rate Site barium sulfate (READI-CAT 2) 2 % (w/v) suspension 900 mL 900 mL, oral, Once in imaging, Starting on 05/06/24 at 1423, For 1 dose Given 05/06/2024 2:24 PM EST 900 mL iopamidoL (ISOVUE-370) 370 mg iodine /mL (76 %) injection 90 mL 90 mL, intravenous, Once in imaging, Starting on Mon05/06/24 at 1423, For 1 dose Given 05/06/2024 2:24 PM EST 90 mL sodium chloride 0.9 % flush 10 mL 10 mL, intravenous, Once, On Mon05/06/24 at 1445, For 1 dose Given 05/06/2024 2:25 PM EST 10 mL documented in this encounter Additional Health Concerns Infection Onset Date Last Indicated Resolved Time RSV 04/18/2024 04/18/2024 05/12/2024 7:06 PM EST Assessment Noted Time PHQ-9 Depression Total Score: 0 02/21/20 24 11:22 AM EST documented as of this encounter Care Teams Weblogic Administrator Relationship Specialty Start Date End Date Yas Madera MD [address] [place] [address] PCP - General Internal Medicine 07/02/21 documented as of this encounter
== END 2024-05-14 11:28 | disposition home or self-care (01) ==
PROVIDERS: PCP Internal Medicine Rheumatology; Visit Provider Internal Medicine Rheumatology
DX: M11.29 Other chondrocalcinosis, multiple sites (principal); M65.331 Trigger finger, right middle finger; Z79.899 Other long term (current) drug therapy
CPT/HCPCS: 20550; 99214

== ENCOUNTER → 2024-05-14 10:30 | Outpatient (BNVA) | payer OTHER, SELFPAY | PROVIDERS: PCP Internal Medicine Rheumatology; Visit Provider Internal Medicine Rheumatology | DX: M11.241 Other chondrocalcinosis, right hand (principal); M65.331 Trigger finger, right middle finger; Z79.899 Other long term (current) drug therapy | CPT/HCPCS: 20550; 20600; J2003; J3300 ==

== ENCOUNTER 2024-11-06 10:04 | Outpatient (AMB) | payer OTHER, SELFPAY ==
--- NOTE | 2024-11-06 10:11 | A.OFFVIS_ITS ---
Vital Signs 11/06/24 10:12 Height 5 ft 2.5 in Weight 174 lb 2 oz BMI 31.3 BP 132/80 Blood Pressure Location Rt brachial Position Sitting Pulse 88 Pulse Source Pulse Oximeter Pulse Oximetry (%) 100 Intake Visit Reasons: 6 mo follow up Intake Note: Patient presents today for joint pain follow up on joint pain/osteoarthritis. Accompanied by: Self / Same As Patient Allergies rituximab (From Rituxan) Allergy (Mild, Verified 11/06/24 10:16) Rash chemotherapy Allergy (Mild, Uncoded 05/13/24 10:00) Hives HPI HPI 6 mo follow up: Details: She feels well. She had joint pain that has now resolved. Physical Exam Vital Signs: Last Vital Signs Pulse 88 11/06/24 10:12 BP 132/80 11/06/24 10:12 Pulse Ox 100 11/06/24 10:12 BMI result Body Mass Index 31.3 Const Other: General: Comfortable CVS: RRR Respiratory: clear to auscultation bilaterally. Good respiratory effort Skin: No lesions seen MSK: No triggering observed. Chronic synovial thickening of right 2nd and 3rd MCP has resolved. She has volar subluxation of MCPs with slight ulnar deviation. 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 Shoulder abduction is 160 degrees with good internal and external rotation. Tender to palpate bilateral knees. She has hypertrophy of knee joints. Bilateral Knee flexions are 100 degrees. Bilateral ankle edema. Assessment & Plan Assessment & Plan (1) Calcium pyrophosphate deposition disease (CPPD): Comment: Crystal proven involving episodic joint pain and swelling of MCPs and left knee. Chronic synovial thickening of right 2nd and 3rd MCP resolved with intra- articular cortisone injections from last visit. She remained stable on colchicine 0.6 mg b.i.d. Rheumatology history: On colchicine 0.6 mg b.i.d.. She was unable to tolerate higher dose of colchicine. She has background of CLL with white cell count trending up in the last year. I would avoid DMARD therapy with consideration of her CLL history due to risk of bone marrow suppression. Prednisone has a risk of causing leukocytosis. July 2024 right 2nd and 3rd MCP intra-articular cortisone injection were effective. Code(s): M11.20 - Other chondrocalcinosis, unspecified site Category: Medical Plan: Labs for drug monitoring on colchicine requested from September 2024 from [facility]. Lab requisition given to patient in the past to have done at [facility], where she has frequent labs done for CLL monitoring. Continue colchicine 0.6 mg b.i.d. Return to clinic in 6 months (2) Trigger finger, right middle finger: Comment: Resolved with cortisone injection from last visit. She has history of left 3rd trigger finger, which resolved cortisone injection 2020. Code(s): M65.331 - Trigger finger, right middle finger Category: Medical Plan: Monitor clinically (3) Other skilled nursing (current) drug therapy: Code(s): Z79.899 - Other terminal carman (current) drug therapy Category: Medical Plan: See above Coding Level of Care Code Est Pt Level 4 (72389) Complex EM visit Add On G2211 Diagnoses Calcium pyrophosphate deposition disease (CPPD) M11.20 Trigger finger, right middle finger M65.331 Other skilled nursing (current) drug therapy Z79.899
[2024-11-06 10:12] VITALS: BP 132/80; PULSE 88; O2SAT 100; BMI 31.3
--- OUTSIDE RECORDS SUMMARY | 2024-11-06 10:55 | XMS_ITS | Clinical Summary ---
Author Organization [facility] Address [address] [place] [address] Phone Care Team Providers Care Wilton Weaver Name Role Phone Yas Madera MD Primary Care Provider Allergies Active Allergy Reactions Criticality Noted Date Comments Rituximab 11/23/2016 rash Medications cholecalciferol (VITAMIN D-3) 25 mcg (1,000 unit) capsule Take 1,000 Units by mouth daily. Active loratadine (CLARITIN) 10 mg tablet TAKE ONE TABLET BY MOUTH EVERY DAY 90 tablet 1 05/07/19 25 Active colchicine (COLCRYS) 0.6 mg tablet Take 1 tablet (0.6 mg total) by mouth 2 (two) times a day. Per 05/23/19 25 Active lisinopriL (PRINIVIL,ZESTR IL) 30 mg tablet Take 0.5 tablets (15 mg total) by mouth 1 (one) time each day. 05/23/19 25 Active metFORMIN (GLUCOPHAGE) 500 mg tablet Take 2 tablets (1,000 mg total) by mouth 1 (one) time each day with breakfast. 180 tablet 1 06/11/19 25 Active atorvastatin (LIPITOR) 10 mg tablet TAKE ONE TABLET BY MOUTH EVERY DAY 90 tablet 1 08/16/19 25 Active ibrutinib (IMBRUVICA) 420 mg tabletIndicatio ns:chronic lymphocytic leukemia Take 1 tablet (420 mg total) by mouth 1 (one) time each day 28 tablet 5 5 9:45 AM EDT 08/31/19 25 Active PARoxetine (PAXIL) 20 mg tablet Take 1 tablet (20 mg total) by mouth 1 (one) time each day. 90 tablet 1 10/15/19 25 Active levothyroxine (SYNTHROID, LEVOTHROID) 75 mcg tablet TAKE ONE TABLET BY MOUTH EVERY DAY 90 tablet 1 10/22/19 25 Active hydroCHLOROthia zide (HYDRODIURIL) 25 mg tablet TAKE ONE TABLET BY MOUTH EVERY DAY 90 tablet 1 10/22/19 25 Active PARoxetine (PAXIL) 20 mg tablet TAKE ONE TABLET BY MOUTH EVERY DAY 09/20/19 23 025 Discontinued(Re order) levothyroxine (SYNTHROID, LEVOTHROID) 75 mcg tablet TAKE ONE TABLET BY MOUTH EVERY DAY 90 tablet 1 03/11/20 24 025 Discontinued hydroCHLOROthia zide (HYDRODIURIL) 25 mg tablet TAKE ONE TABLET BY MOUTH EVERY DAY 90 tablet 1 03/20/20 24 025 Discontinued Active Problems Problem Noted Date Diagnosed Date Hypokalemia 03/03/2022 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 Villatoro. Has family hx RA in two children but she is neg. Colchicine 0.6mg bid COVID-19 virus infection 08/02/2019 Overview (01/23/2024): 07/10/2019- detected Type II or unspecified type diabetes mellitus with renal manifestations, not stated as uncontrolled(250.40) ([facility] V24, [facility] V28) 07/06/2017 Generalized edema 11/10/2016 Urticaria 10/19/2016 Osteoarthritis of both knees 11/20/2015 Overview (06/26/2023): R > L Overview: R > L Osteopenia 11/20/2015 Overview (06/26/2023): BMD 01/29/14. 2019- unchanged 2021- 14% risk of major osteoporotic fracture and a 1.8% risk of hip fracture over the next 10 years Overview: BMD 01/29/14. 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 Hematology Oncology [address] [place] [phone] Monroe-Eriberto Patel MD CLL (chronic lymphocytic leukemia) ([facility] V24, [facility] V28) (Primary Dx) from Last 3 Months Immunizations Name Administration Dates Next Due Influenza Quadravalent, MDCK , 0.5ml, with preservative (Flucelvax) 6mo and older 02/09/2018,04/05/2017 Influenza trivalent, 0.5mL ( Fluad) 65yo and older 02/26/2024 Influenza trivalent, 0.5mL ( Fluzone High-dose) 65yo and older 01/10/2023,02/09/2021,03/06/2019 Influenza trivalent, with pr eservative (Fluzone; Afluria) 6mo and older 05/30/2016 Trovebox SARS-CoV-2 COVID-19, mRNA, LNP-S, preservative free 04/13/2021,09/29/2020,09/08/2020 Pneumococcal conjugate 20 va lent (Prevnar 20, PCV 20) 2mo and older 09/09/2022 Pneumococcal polysaccharide 23 valent (Pneumovax 23) 2yo and older 11/29/2018 Tdap Tetanus diptheria acell ular pertussis (Boostrix; Adacel) 7yo and older 12/02/2015 Surgical History Surgery Date Site/Laterality Comments TOTAL KNEE ARTHROPLASTY PROCEDURE:TOTAL KNEE ARTHROPLASTY TUBAL LIGATION PROCEDURE:TUBAL LIGATION CATARACT EXTRACTION 02/28/2024 Bilateral Medical History Medical History Date Comments Leukemia ([facility] V24, [facility] V28) DX:Leukemia (HCC) Hypertension DX:Hypertension Anemia DX:Anemia Family History Medical History Relation Name Comments Cancer Father Relation Name Status Comments Father Social History Tobacco Use Types Packs/Day Years Used Date Smoking Tobacco: Former Smokeless Tobacco: Never Tobacco Cessation:Counseling Given: Not Answered Alcohol Use Standard Drinks/Week Comments No 0 (1 standard drink = 0.6 oz pur e alcohol) Comments No Sex and Gender Information Value Date Recorded Sex Assigned at Female 03/20/2024 3:46 PM EST Legal Sex Female 5:36 PM EST Gender Identity Female 03/20/2024 3:46 PM EST Sexual Orientation Straight 05/06/2024 1: 38 PM EST Obstetrics History Last Filed Vital Signs Vital Sign Reading Time Taken Comments Blood Pressure 143/78 09/17/2024 11:00 AM EDT Pulse 93 09/17/2024 11:00 AM EDT Temperature 36.6 C (97.8 F) 09/17/2024 11:00 AM EDT Respiratory Rate 16 05/23/2024 9:38 AM EST Oxygen Saturation 100% 09/17/2024 11:00 AM EDT Inhaled Oxygen Concentration - - Weight 80.3 kg (177 lb) 09/17/2024 11:00 AM EDT Height 158.8 cm (5' 2.5 ) 09/17/2024 11:00 AM ED T Body Mass Index 31.86 09/17/2024 11:00 AM EDT Plan of Treatment Upcoming Encounters Date Type Department Care Team (Late st Contact Info) Description 11/22/2024 10:30 AM EDT Office Visit Adult Medicine [address] [phone] Pasha Villalpando PA [address] [place] [phone] 11/25/2024 10:45 AM EDT Office Visit [facility] Hematology Oncology [address] [place] [phone] Eriberto Galindo MD [address] [place] [phone] Health Maintenance Due Date Last Done Comments Breast Cancer Screening 1955 Zoster Vaccines (1 of 2) 1972 RSV Immunization Adult Patients (1 - Risk 60-74 years 1-dose series) 2013 Colorectal Cancer Screening: Colonoscopy 03/25/2022 Social Influencers of Health Screening 03/25/2022 COVID-19 Vaccine ( season) 2023 02/25/2023, 04/13/2021, 09/29/2020, Additional history exists Diabetes: Annual Retina Eye Exam 01/11/2024 01/10/2023 Medicare Annual Wellness Visit 01/12/2024 01/11/2023 Diabetes: Annual Foot Exam 05/12/2024 05/12/2023 Diabetes: Blood Sugar Control Test (HGBA1C) 11/20/2024 05/23/2024, 11/20/2023, 11/20/2023 Influenza Vaccine (#1) 2024 , 01/10/2023, 02/09/2021, Additional history exists Diabetes: Annual Urine Albumin-Creatinine Ratio (uACR) 05/23/2025 05/23/2024, 11/20/2023 Falls Risk Assessment 05/23/2025 05/23/2024, 023 Diabetes: Annual GFR (Glomerular Filtration Rate) 10/24/2025 10/24/2024, 10/14/2024, 08/14/2024, Additional history exists Hypertension/CHF/CAD Annual BMP Blood Test 10/24/2025 10/24/2024, 10/14/2024, 08/14/2024, Additional history exists DTaP,Tdap,and Td Vaccines (2 - Td or Tdap) 12/01/2025 12/02/2015 Cholesterol Screening (Lipid Panel) 11/19/2028 11/20/2023, 11/20/2023 Osteoporosis Screening (Bone Density Screening) 12/03/2031 12/02/2021 Hepatitis C Screening Completed 08/24/2015 Pneumococcal Vaccine: 50+ Years Completed 09/09/2022, 11/29/2018 Depression Screening Completed 05/23/2024, 01/12/20 23 HIB Vaccines Aged Out No longer eligi [...] patient's age to complete this topic Meningococcal B Vaccine Aged Out No l onger eligible based on patient's age to complete this topic RSV Immunization Patients Under 20 months Aged Out No longer eligible based on patient's age to complete this topic Varicella Vaccines Aged Out No longer eligible based on patient's age to complete this topic Procedures Procedure Name Priority Date/Time Associated Diagnosis Comments ALANINE AMINOTRANSFERASE Routine 10/14/2024 10:25 AM EDT CLL (chronic lymphocytic leukemia) ([facility] V24, [facility] 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 CBC WITH AUTO DIFFERENTIAL Routine 10/14/2024 10:21 AM EDT CLL (chronic lymphocytic leukemia) ([facility] V24, [facility] V28) CBC AND DIFFERENTIAL Routine 10/14/2024 10:21 AM EDT CLL (chronic lymphocytic leukemia) ([facility] V24, [facility] V28) COMPREHENSIVE METABOLIC PANEL Routine 10/14/2024 10:21 AM EDT CLL (chronic lymphocytic leukemia) ([facility] V24, [facility] V28) LACTATE DEHYDROGENASE Routine 10/14/2024 10:21 AM EDT CLL (chronic lymphocytic leukemia) ([facility] V24, [facility] V28) IMMUNOGLOBULIN IGG Routine 10/14/2024 10:21 AM EDT CLL (chronic lymphocytic leukemia) ([facility] V24, [facility] V28) FERRITIN Routine 10/14/2024 10:21 AM EDT CLL (chronic lymphocytic leukemia) ([facility] V24, [facility] V28) MANUAL DIFFERENTIAL - SYSMEX WAM Routine 08/14/2024 10:04 AM EDT CLL (chronic lymphocytic leukemia) ([facility] V24, [facility] V28) PATHOLOGIST REVIEW BLOOD SMEAR Routine 08/14/2024 10:04 AM EDT CLL (chronic lymphocytic leukemia) ([facility] V24, [facility] V28) CBC WITH AUTO DIFFERENTIAL Routine 08/14/2024 10:04 AM EDT CLL (chronic lymphocytic leukemia) ([facility] V24, [facility] V28) CBC AND DIFFERENTIAL Routine 08/14/2024 10:04 AM EDT CLL (chronic lymphocytic leukemia) ([facility] V24, [facility] V28) COMPREHENSIVE METABOLIC PANEL Routine 08/14/2024 10:04 AM EDT CLL (chronic lymphocytic leukemia) ([facility] V24, [facility] V28) LACTATE DEHYDROGENASE Routine 08/14/2024 10:04 AM EDT CLL (chronic lymphocytic leukemia) ([facility] V24, [facility] V28) IMMUNOGLOBULIN IGG Routine 08/14/2024 10:04 AM EDT CLL (chronic lymphocytic leukemia) ([facility] V24, [facility] V28) FERRITIN Routine 08/14/2024 10:04 AM EDT CLL (chronic lymphocytic leukemia) ([facility] V24, [facility] V28) MICROALBUMIN CREATININE URINE RATIO Routine 05/23/2024 10:57 AM EST Type II or unspecified type diabetes mellitus with renal manifestations, not stated as uncontrolled(250.40) ([facility] V24, [facility] V28) Mixed hyperlipidemia Acquired hypothyroidism HEMOGLOBIN A1C Routine 05/23/2024 10:30 AM EST Type II or unspecified type diabetes mellitus with renal manifestations, not stated as uncontrolled(250.40) ([facility] V24, [facility] V28) Mixed hyperlipidemia Acquired hypothyroidism LIPID PANEL Routine 11/20/2023 DIABETES FOOT EXAM [...] Recently Relevant to Health Maintenance Results * Alanine aminotransferase (10/14/2024 10:25 AM EDT) ALT (SGPT) 26 10 - 60 unit/L LAB CHEMISTRY METHOD 10/14/2024 12:50 PM EDT [facility] Blood Venous blood specimen / Unknown Venipuncture / Unknown 10/14/2024 10:25 AM EDT 10/14/2024 11:11 AM EDT us FarooqRakesh Villatoro MD LAB BLOOD ORDERABLES Mari l Result [facility] [address] [place] [address], * (ABNORMAL) CBC auto differential (10/14/2024 10:21 AM EDT) Only the most recent of2 resultswithin the time period is included. WBC 92.1(HH) 4.8 - 10.8 K/mcL LAB HEMETOLOGY METHOD 10/14/2024 2:44 PM EDT [facility] RBC 4.40 3.80 - 4.80 M/mcL LAB HEMETOLOGY METHOD 10/14/2024 2:44 PM EDT [facility] Hemoglobin 12.1 11.5 - 16.0 g/dL LAB HEMETOLOGY METHOD 10/14/2024 2:44 PM EDT [facility] Hematocrit 40.5 35.0 - 47.0 % LAB HEMETOLOGY METHOD 10/14/2024 2:44 PM EDT [facility] MCV 93.1 79.0 - 98.0 FL LAB HEMETOLOGY METHOD 10/14/2024 2:44 PM EDT [facility] MCH 27.8 27.0 - 32.0 pcg LAB HEMETOLOGY METHOD 10/14/2024 2:44 PM EDT [facility] MCHC 29.9(L) 32.0 - 37.0 g/dL LAB HEMETOLOGY METHOD 10/14/2024 2:44 PM EDT [facility] RDW 15.6(H) 11.0 - 15.0 % LAB HEMETOLOGY METHOD 10/14/2024 2:44 PM EDT [facility] Platelets 174 130 - 400 K/mcL LAB HEMETOLOGY METHOD 10/14/2024 2:44 PM EDT [facility] MPV 13.0(H) 7.0 - 11.0 FL LAB HEMETOLOGY METHOD 10/14/2024 2:44 PM EDT [facility] NRBC 0.0 <1.0 % [facility] NR[facility] Absolute 0.00 <0.10 K/mcL LAB HEMETOLOGY METHOD 10/14/2024 2:44 PM EDT [facility] Neutrophils Relative 4.7 % LAB HEMETOLOGY METHOD 10/14/2024 2:44 PM EDT [facility] Comment:This is an appended report. These results have been appended to a previously final verified report. Lymphocytes Relative 92.5 % LAB HEMETOLOGY METHOD 10/14/2024 2:44 PM T [facility] Comment:This is an appended report. These results have been appended to a previously final verified report. Monocytes Relative 2.2 % LAB HEMETOLOGY METHOD 10/14/2024 2:44 PM T [facility] Comment:This is an appended report. These results have been appended to a previously final verified report. Eosinophils Relative 0.3 % LAB HEMETOLOGY METHOD 10/14/2024 2:44 PM T [facility] Comment:This is an appended report. These results have been appended to a previously final verified report. Basophils Relative 0.1 % LAB HEMETOLOGY METHOD 10/14/2024 2:44 PM T [facility] Comment:This is an appended report. These results have been appended to a previously final verified report. Immature Granulocytes Relative 0.2 % LAB HEMETOLOGY METHOD 10/14/2024 2:44 PM EDT [facility] Comment:This is an appended report. These results have been appended to a previously final verified report. Neutrophils Absolute 4.33 1.50 - 7.00 K/mcL LAB HEMETOLOGY METHOD 10/14/2024 2:44 PM EDT [facility] Comment:This is an appended report. These results have been appended to a previously final verified report. Lymphocytes Absolute 85.19(H) 1.00 - 5.00 K/mcL LAB HEMETOLOGY METHOD 10/14/2024 2:44 PM EDT [facility] Comment:This is an appended report. These results have been appended to a previously final verified report. Monocytes Absolute 2.02(H) 0.20 - 1.00 K/mcL LAB HEMETOLOGY METHOD 10/14/2024 2:44 PM EDT [facility] Comment:This is an appended report. These results have been appended to a previously final verified report. Eosinophils Absolute 0.25 0.00 - 0.50 K/mcL LAB HEMETOLOGY METHOD 10/14/2024 2:44 PM EDT [facility] Comment:This is an appended report. These results have been appended to a previously final verified report. Basophils Absolute 0.09 0.00 - 0.20 K/[facility] LAB HEMETOLOGY METHOD 10/14/2024 2:44 PM EDT [facility] Comment:This is an appended report. These results have been appended to a previously final verified report. Immature Granulocytes Absolute 0.17(H) 0.00 - 0.03 K/[facility] LAB HEMETOLOGY METHOD 10/14/2024 2:44 PM EDT [facility] Comment:This is an appended report. These results have been appended to a previously final verified report. Blood Venous blood specimen / Unknown Venipuncture / Unknown 10/14/2024 10:21 AM EDT 10/14/2024 11:10 AM EDT us Eriberto Galindo MD LAB BLOOD ORDERABLE S Edited Result - Final [facility] [address] [place] [address], * Lactate dehydrogenase (10/14/2024 10:21 AM EDT) Only the most recent of2 resultswithin the time period is included. LDH 144 120 - 246 unit/L LAB CHEMISTRY METHOD 10/14/2024 1:06 PM EDT [facility] Blood Venous blood specimen / Unknown Venipuncture / Unknown 10/14/2024 10:21 AM EDT 10/14/2024 11:11 AM EDT us Eriberto Galindo MD LAB BLOOD ORDERABLE S Final Result Performing Organization Address [facility] Co de Phone Number [facility] [address] [place] [address], [place] [phone] * (ABNORMAL) Immunoglobulin IgG (10/14/2024 10:21 AM EDT) Only the most recent of2 resultswithin the time period is included. Total IgG 359(L) 549 - 1,584 mg/dL LAB CHEMISTRY METHOD 10/14/2024 1:14 PM EDT [facility] Blood Venous blood specimen / Unknown Venipuncture / Unknown 10/14/2024 10:21 AM EDT 10/14/2024 11:11 AM EDT us Eriberto Galindo MD LAB BLOOD ORDERABLE S Final Result Performing Organization Address [facility]/ZIP Co de Phone Number [facility] [address] [place] [address], [place] [phone] * Ferritin (10/14/2024 10:21 AM EDT) Only the most recent of2 resultswithin the time period is included. Ferritin 17 8 - 252 ng/mL LAB CHEMISTRY METHOD 10/14/2024 1:14 PM EDT [facility] Blood Venous blood specimen / Unknown Venipuncture / Unknown 10/14/2024 10:21 AM EDT 10/14/2024 11:11 AM EDT Eriberto Galindo MD LAB BLOOD ORDERABLE S Final Result [facility] [address] [place] [address], [place] [phone] * (ABNORMAL) Comprehensive metabolic panel (10/14/2024 10:21 AM EDT) Only the most recent of2 resultswithin the time period is included. Sodium 136 133 - 145 mmol/L LAB CHEMISTRY METHOD 10/14/2024 1:14 PM T [facility] Potassium 3.5 3.5 - 5.5 mmol/L LAB CHEMISTRY METHOD 10/14/2024 1:14 PM [facility] Chloride 102 96 - 110 mmol/L LAB CHEMISTRY METHOD 10/14/2024 1:14 PM [facility] CO2 26 21 - 32 mmol/L LAB CHEMISTRY METHOD 10/14/2024 1:14 PM [facility] Anion Gap 8 3 - 11 LAB CHEMISTRY METHOD 10/14/2024 1:14 PM [facility] Glucose 104(H) 70 - 100 mg/dL LAB CHEMISTRY METHOD 10/14/2024 1:14 PM [facility] BUN 20 5 - 25 mg/dL LAB CHEMISTRY METHOD 10/14/2024 1:14 PM [facility] Creatinine 0.96 0.50 - 1.10 mg/dL LAB CHEMISTRY METHOD 10/14/2024 1:14 PM [facility] eGFR 64 >=60 mL/min/1. 73m2 LAB CHEMISTRY METHOD 10/14/2024 1:14 PM [facility] Comment:Calculation based on the Chronic Kidney Disease Epidemiology Collaboration (CKD-EPI) equation refit without adjustment for race. BUN/Creatinine Ratio 20.8 LAB CHEMISTRY METHOD 10/14/2024 1:14 PM T [facility] Calcium 9.4 8.5 - 10.5 mg/dL LAB CHEMISTRY METHOD 10/14/2024 1:14 PM T [facility] AST (SGOT) 19 10 - 42 unit/L LAB CHEMISTRY METHOD 10/14/2024 1:14 PM [facility] ALT (SGPT) 27 10 - 60 unit/L LAB CHEMISTRY METHOD 10/14/2024 1:14 PM [facility] Alkaline Phosphatase 86 42 - 121 unit/L LAB CHEMISTRY METHOD 10/14/2024 1:14 PM [facility] Total Protein 6.0 6.0 - 8.0 g/dL LAB CHEMISTRY METHOD 10/14/2024 1:14 PM [facility] Albumin 3.7 3.2 - 5.0 g/dL LAB CHEMISTRY METHOD 10/14/2024 1:14 PM [facility] Total Bilirubin 0.9 0.0 - 1.4 mg/dL LAB CHEMISTRY METHOD 10/14/2024 1:14 PM [facility] Blood Venous blood specimen / Unknown Venipuncture / Unknown 10/14/2024 10:21 AM EDT 10/14/2024 11:11 AM EDT us Subramroselyn Galindo MD LAB BLOOD ORDERABLE S Final Result [facility] [address] [place] [address], * (ABNORMAL) Manual differential (08/14/2024 10:04 AM EDT) Neutrophils % 4.0 % LAB HEMETOLOGY METHOD 08/14/2024 1:45 PM EDT [facility] Lymphocytes % 83.0 % LAB HEMETOLOGY METHOD 08/14/2024 1:45 PM EDT [facility] Reactive Lymphocyte 10.00 % LAB HEMETOLOGY METHOD 08/14/2024 1:45 PM EDT [facility] Monocytes % 2.0 % LAB [facility]EMETOLOGY [facility] Eosinophils % 1.0 % LAB HEMETOLOGY METHOD 08/14/2024 1:45 PM EDT [facility] Basophils % 0.0 % LAB HEMETOLOGY METHOD [facility]2024 [facility] Neutrophils Absolute Manual 3.46 1.50 - 7.00 K/mcL LAB HEMETOLOGY METHOD 08/14/2024 1:45 [facility] Lymphocytes Absolute 71.71(H) 1.00 - 5.00 K/mcL LAB HEMETOLOGY METHOD 08/14/2024 1:45 [facility] Reactive Lymph Abs Manual 8.64(H) 0.00 - 0.00 lym LAB HEMETOLOGY METHOD 08/14/2024 1:45 [facility] Monocytes Absolute Manual 1.73(H) 0.20 - 1.00 K/mcL LAB HEMETOLOGY METHOD 08/14/2024 1:45 PM [facility] Eosinophils Absolute Manual 0.86(H) 0.00 - 0.50 K/mcL LAB HEMETOLOGY METHOD 08/14/2024 1:45 PM EDT [facility] Basophils Absolute Manual 0.00 0.00 - 0.20 K/mcL LAB HEMETOLOGY METHOD 08/14/2024 1:45 [facility] Rbc Morphology Consistent with indices Consistent with indices, Normal for LAB HEMETOLOGY METHOD 08/14/2024 1:45 [facility] Platelet Morphology - WAM See Note(A) Normal LAB HEMETOLOGY METHOD 08/14/2024 1:45 PM [facility] Comment:PLT: Normal Blood Venous blood specimen / Unknown Venipuncture / Unknown 08/14/2024 10:04 AM EDT 08/14/2024 12:27 PM EDT Eriberto Galindo MD LAB BLOOD ORDERABLE S Final Result Performing Organization Address [facility]/ZIP Co de Phone Number [facility] [address] [place] [address], [place] [phone] * Pathology review, blood smear (08/14/2024 10:04 AM EDT) Pathologist Review Blood Smear Lymphocytosis, consistent with history of CLL/SLL 08/14/2024 2:38 PM EDT [facility] Blood Venous blood specimen / Unknown Venipuncture / Unknown 08/14/2024 10:04 AM EDT 08/14/2024 12:27 PM EDT Eriberto Galindo MD LAB BLOOD ORDERABLE S Final Result Performing Organization Address [facility]/ZIP Co de Phone Number [facility] [address] [place] [address], [place] [phone] * Microalbumin creatinine urine ratio (05/23/2024 10:57 AM EST) Creatinine, Urine 129.0 mg/dL LAB CHEMISTRY METHOD 05/23/2024 12:29 PM EST [facility] Microalb, Ur 7.8 0.0 - 29.0 mg/L LAB CHEMISTRY METHOD 05/23/2024 12:29 PM EST [facility] Microalb/Creat Ratio 6 <30 mg/g creat LAB CHEMISTRY METHOD 05/23/2024 12:29 PM EST [facility] Urine Urine specimen obtained by clean catch procedure / Unknown Non-blood Collection / Unknown 05/23/2024 10:57 AM EST 05/23/2024 10:57 AM EST Yas Madera MD LAB URINE ORDERABLES F inal Result Performing Organization Address [facility]/ZIP Co de Phone Number [facility] [address] [place] [address], [place] [phone] * Hemoglobin A1c (05/23/2024 10:30 AM EST) [facility] Hemoglobin A1C 6.2 <6.5 % LAB CHEMISTRY METHOD 05/23/2024 1:46 PM EST [facility] Mean Bld Glu Estim. 131 mg/dL LAB CHEMISTRY METHOD 05/23/2024 1:46 PM EST [facility] Blood Venous blood specimen / Unknown Venipuncture / Unknown 05/23/2024 10:30 AM EST 05/23/2024 10:30 AM EST Yas Madera MD LAB BLOOD ORDERABLES F inal Result [facility] [address] [place] [address], [place] [phone] * (ABNORMAL) Lipid panel (11/20/2023) [facility] LDL/HDL Ratio 4 0 - 4 Triglycerides 171(A) 0 - 150 mg/dL Cholesterol 172 0 - 200 mg/dL HDL 45 >=40 mg/dL LDL Cholesterol 93 0 - 100 mg/dL Blood Venous blood specimen / Unknown Historical Provider LAB BLOOD ORDERABLES Mari l Result * Diabetes Foot Exam (05/12/2023) [facility] Diabetes: Annual Foot Exam abstracted Historical Provider HEALTH MAINTENANCE Final Result * Falls Risk Assessment (01/11/2023) [facility] Falls Risk Assessment abstracted Historical Provider MD HEALTH MAINTENANCE Final Result * Depression Screening (01/11/2023) Depression Screening abstracted [facility] Provider MD HEALTH MAINTENANCE Final Result * Diabetes Eye Exam (01/10/2023) Diabetes: Annual Retina Eye Exam abstracted [facility] Provider [facility] Final Result * DXA BONE DENSITY STUDY 1+ SITS AXIAL SKEL (12/02/2021 1:52 PM EDT) Anatomical Region Laterality Modality Bone Densitometr y 08/09/2021 11:3 9 AM EDT Narrative 12/02/2021 5:36 PM EDT BONE DENSITY Lumbar Spine T-score is -0.2 (SD relative to 20-29 y/o adult) Z-score is +1.7 (SD relative to age matched peers) This is normal by criteria defined by the WHO. Left Hip T-score is -1.7 Z-score is +0.0 This is consistent with osteopenia by criteria defined by the WHO. %. Impression: Based on the World Health Organization criteria, Elizabeth Posey should be classified as having osteopenia. This patient has a 14% risk of major osteoporotic fracture and a 1.8% risk of hip fracture over the next 10 years. (World Health Organization Fracture Risk Assessment) The [facility] Department of Internal Medicine recommends using [...] Based on the World Health Organization criteria, Elizabeth Vázquezould be classified as having osteopenia. This patient has a 14% risk ofmajor osteoporotic fracture and a 1.8% risk of hip fracture over the next10 years. (World Health Organization Fracture Risk Assessment) The [facility] Department of Internal Medicine recommendsusing National Osteoporosis [...] or over-estimation of fracture risk by [employer]X. us Adalgisa REYES IMG DXA PROCEDURES Final R esult * Hm Hepatitis C Screening (08/24/2015) Hepatitis C Screening abstracted Historical Provider HEALTH MAINTENANCE Final Result from Last 3 Months or Most Recently Relevant to Health Maintenance Insurance [employer] MEDICARE ADVANTAGE MEDICARE Care Teams Wilton Weaver Relationship Specialty Start Date End Date Yas Madera MD [address] [place] [id number] PCP - General Internal Medicine 07/02/21
--- OUTSIDE RECORDS SUMMARY | 2024-11-06 10:55 | XMS_ITS | Clinical Summary ---
Author Organization [facility] Address [address] [place] [address] Care Team Providers Care Erp Programmer Name Role Phone Yas Madera MD Primary [...] > L Osteopenia 11/20/2015 Overview: Overview: BMD 01/29/14. 2019- unchanged Vitamin D deficiency 11/20/2015 HTN [...] 96 12/20/2023 10:40 AM EDT Temperature 36.6 C (97.8 F) 12/20/2023 10:40 AM EDT Respiratory Rate - - Oxygen Saturation 99% [...] 2023 04/13/2021, 09/29/2020, 09/08/2020 Influenza Vaccine (#1) 2024 3, 02/09/2021, 03/06/2019, Additional history exists DTap / Tdap / Td (2 - Td or Tdap) 12/01/2025 12/02/2015 Pneumococcal Vaccine Completed 09/09/2022, 11/30/19 19 Hepatitis B Vaccines Aged Out No long er eligible based on patient's age to complete this topic RSV Ped < 20 months Aged Out No longe r eligible based on patient's age to complete this topic Care Teams Erp Programmer Relationship Specialty Start Date End Date Yas Madera MD [address] [place] [address] PCP - General Family Medicine 12/01/21
--- OUTSIDE RECORDS SUMMARY | 2024-11-06 10:55 | XMS_ITS | Clinical Summary ---
Author Organization [facility] Address [address] [facility] [address] [place] [address] Phone Care Team Providers Care Planning Intern Name Role Phone Yas Madera MD Primary Care Provider Eriberto Galindo MD Unavailable [phone] Allergies Active Allergy Reactions Criticality Noted Date Comments Rituximab Itching,Rash Low 10/18/2016 rash Medications atorvastatin (LIPITOR) 10 MG tablet Take 10 mg by mouth every evening. Active cholecalciferol, vitamin D3, 25 mcg (1,000 unit) capsule Take 1,000 Units by mouth daily. Active colchicine (COLCRYS) 0.6 mg tablet Take 0.6 mg by mouth 2 (two) times a day. 01/24/2018 Active hydroCHLOROthiaz almita 25 MG tablet Take 25 mg by mouth daily. 10/21/2024 Active ibrutinib (IMBRUVICA) 420 mg tablet Take 420 mg by mouth daily. 07/16/2018 Active levothyroxine (SYNTHROID, LEVOTHROID) 75 MCG tablet Take 75 mcg by mouth daily. 10/21/2024 Active lisinopril (PRINIVIL,ZESTRI L) 30 MG tablet Take 15 mg by mouth daily. 05/23/2024 Active loratadine (CLARITIN) 10 mg tablet Take 10 mg by mouth daily. Active metFORMIN (GLUCOPHAGE) 1000 MG tablet Take 1,000 mg by mouth 2 (two) times a day with meals. Active PARoxetine (PAXIL) 20 MG tablet Take 20 mg by mouth every morning. 09/05/2023 Active Active Problems No known active problems Encounters Date Type Department Care Team Description 10/24/2024 2:00 PM EDT [facility] Division of Hematologic Oncology, [address], [address] [place] [address] Benjamin Valladares MD CLL (chronic lymphocytic leukemia) (Primary Dx) 10/23/2024 11:00 AM EDT Nurse Only [facility] Division of Hematologic Oncology, [facility] [address] [facility], [address] [place] [address] Benjamin Valladares MD Dibibar, Amber, RN CLL (chronic lymphocytic leukemia) (Primary Dx) 10/22/2024 Ancillary Orders DF IMG OUTSIDE IMG [address] [place] [address] Benjamin Valladares MD 10/22/2024 Ancillary Orders DF IMG OUTSIDE IMG [address] [place] [address] Benjamin Valladares MD from Last 3 Months Social History Tobacco Use Types Packs/Day Years Used Date Smoking Tobacco: Never Assessed Child or Family Care Answer Date Record ed Do you have problems with on e of the following making it difficult for you to work, study, or receive health care? No 10/16/2024 Education Answer Date Recorded Are you interested in more education? Not on raghavendra e 07/17/2024 Are you concerned about learning? Not on file 07/17/2024 No 07/17/2024 No 07/17/2024 Food Answer Date Recorded Within the past 6 months we worried whether our food would run out before we got money to buy more. Never True 10/16/2024 Within the past 6 months the food we bought just didn't last and we didn't have enough money to get more. Never True Residential Stability Answer Date Recor ded What is your housing situation today? I have mallika sing 10/16/2024 How many times have you move d in the past 12 months? Zero (I did not move) 10/16/2024 Paying for Meds Answer Date Recorded Do you have trouble paying for medicines? No 10/16/2024 Paying Utility Bills Answer Date Record ed Do you have trouble paying your heating or elect ricity bill? No 10/16/2024 Transportation Answer Date Recorded Has the lack of transportati on kept you from medical appointments or from getting medications? No 10/16/2024 Digital Access Answer Date Recorded No 07/17/2024 No 07/17/2024 Reliable internet access at home? Not on file 07/17/2024 Device with a working camera? Not on file Comments Unknown Sex and Gender Information Value Date Recorded Sex Assigned at Female 07/15/2024 9:25 AM EDT Legal Sex Female 9:24 AM EDT Gender Identity Female 07/15/2024 9:25 AM EDT Sexual Orientation Straight 07/15/2024 9: 25 AM EDT Last Filed Vital Signs Vital Sign Reading Time Taken Comments Blood Pressure 152/69 10/24/2024 1:47 PM EDT Pulse 106 10/24/2024 1:47 PM EDT Temperature 36.6 C (97.8 F) 10/24/2024 1:47 PM EDT Respiratory Rate 18 10/24/2024 1:47 PM EDT Oxygen Saturation 97% 10/24/2024 1:47 PM EDT Inhaled Oxygen Concentration - - Weight 79.1 kg (174 lb 6.1 oz) 10/24/2024 1:47 P M EDT Height 157.5 cm (5' 2.01 ) 10/24/2024 1:47 PM ED T Body Mass Index 31.89 10/24/2024 1:47 PM EDT Plan of Treatment Health Maintenance Due Date Last Done Comments DEPRESSION SCREENING 1965 SMOKING Hx and SMOKELESS TOBACCO SCREENING 1966 HEPATITIS C SCREENING 11/22/1971 ZOSTER VACCINES (1 of 2) 1972 MAMMOGRAM 1993 COLOGUARD 1998 COLONOSCOPY 1998 COLORECTAL CANCER SCREENING 1998 FIT TEST 1998 FOBT 1998 SIGMOIDOSCOPY 1998 VIRTUAL COLONOSCOPY 1998 RSV VACCINE (1 - Risk 60-74 years 1-dose series) 2013 OSTEOPOROSIS SCREENING INITIAL (ONE-TIME) 2018 PNEUMOCOCCAL VACCINES (50+ years) (2 of 2 - PCV) 11/30/2019 11/29/2018 COVID-19 VACCINE (5 - season) 2023 02/25/2023, 04/13/2021, 09/29/2020, Additional history exists TSH LEVEL 05/23/2025 05/23/2024 CREATININE LEVEL 10/24/2025 10/24/2024 POTASSIUM LEVEL 10/24/2025 10/24/2024 Adult Td,Tdap Booster 12/01/2025 12/02/2015 LIPID PANEL 11/19/2028 11/20/2023 HEPATITIS A VACCINES Aged Out No long er eligible based on patient's age to complete this topic HIB VACCINES Aged Out No longer eligi ble based on patient's age to complete this topic MENINGOCOCCAL VACCINES (ACWY) Aged Out No longer eligible based on patient's age to complete this topic MENINGOCOCCAL VACCINES (B) Aged Out N o longer eligible based on patient's age to complete this topic Medical Devices Not on file Procedures Procedure Name Priority Date/Time Associated Diagnosis Comments CLLBANK 99-224 Routine 10/24/2024 3:19 PM EDT CLL (chronic lymphocytic leukemia) CLL BANK 2 Routine 10/24/2024 3:19 PM EDT CLL (chronic lymphocytic leukemia) SPEP PANEL WITH IMMUNOFIXATION Routine 10/24/2024 3:19 PM EDT Vitamin D deficiency, unspecified CLL (chronic lymphocytic leukemia) RAPID HEME PANEL Routine 10/24/2024 3:19 PM EDT Vitamin D deficiency, unspecified CLL (chronic lymphocytic leukemia) LDH Routine 10/24/2024 3:19 PM EDT Vitamin D deficiency, unspecified CLL (chronic lymphocytic leukemia) COMPREHENSIVE METABOLIC PANEL Routine 10/24/2024 3:19 PM EDT Vitamin D deficiency, unspecified CLL (chronic lymphocytic leukemia) IVGH MUTATION Routine 10/24/2024 3:19 PM EDT Vitamin D deficiency, unspecified CLL (chronic lymphocytic leukemia) HC BLOOD COUNT COMPLETE AUTO&AUTO DIFRNTL WBC Routine 10/24/2024 3:19 PM EDT Vitamin D deficiency, unspecified CLL (chronic lymphocytic leukemia) 25-OH VITAMIN D Routine 10/24/2024 3:19 PM EDT Vitamin D deficiency, unspecified BETA-2 MICROGLOBULIN, BLOOD Routine 10/24/2024 3:19 PM EDT Vitamin D deficiency, unspecified CLL (chronic lymphocytic leukemia) FISH WITH KARYOTYPE NEEDED Routine 10/24/2024 3:19 PM EDT Vitamin D deficiency, unspecified CLL (chronic lymphocytic leukemia) SERUM PROTEIN ELECTROPHORESIS Routine 10/24/2024 12:00 AM EDT RAPID HEME PANEL Routine 10/24/2024 12:0 0 AM EDT CYTOGENETICS Routine 10/24/2024 12:00 AM EDT from Last 3 Months Results * FISH with Karyotype as needed (10/24/2024 3:19 PM EDT) Pathologist [facility] Fish Probe (Chromosome Analysis) SEE PATHOLOGY REPORT [facility] LIC# [id number] Blood 10/24/2024 3:19 PM EDT 10/24/2024 3:28 PM EDT us Benjamin Valladares MD LAB BLOOD ORDERABLES Final R esult [facility] LIC# [id number] [address] [place] [address] * Rapid Heme Panel (10/24/2024 3:19 PM EDT) Pathologist [facility] RAPID HEME PANEL BLOOD SEE PATHOLOGY REPORT [facility] LIC# [id number] Blood 10/24/2024 3:19 PM EDT 10/24/2024 3:28 PM EDT us Benjamin Valladares MD LAB BLOOD ORDERABLES Final R esult [facility] LIC# [id number] [address] [place] [address] * IGH Somatic Hypermutation in B-CLL (10/24/2024 3:19 PM EDT) CLL Gene (Mutations tested) see interpretation [facility] DPT OF LAB MED AND PAT+ Specimen Source/Description whole blood [facility] DPT OF LAB MED AND PAT+ CLL Gene analysis SEE NOTE M [facility] DPT OF LAB MED AND PAT+ Comment: (NOTE) Peripheral blood, IGH somatic hypermutation analysis: An un-mutated IGHV5-51*03 rearrangement was identified (mutation level 0.3%). Somatic hypermutation of the immunoglobulin heavy chain gene variable region (IGH-V) status is a recognized prognostic marker in chronic lymphocytic leukemia. Mutated CLL is defined by the presence of >2% IGH-V somatic mutation (or <98% identity to the closest germline sequence) and is independently associated with a relatively favorable prognosis. In contrast, unmutated IGH-V status, defined as <=2% somatic mutation (or >=98% germline sequence identity) is associated with relatively adverse prognosis (Magdalena Carter et al, 2002, [id number]). Correlation of these results with clinical, pathologic and other pertinent laboratory data is required for final interpretation. Signing Pathologist: Rios Ni M.D. ADDITIONAL INFORMATION Method Summary - IGH V-region (IGHV) somatic mutation analysis: DNA is extracted and IGH gene rearrangements are amplified by PCR method using leader and/or FR1 forward primers. Next generation sequencing of the PCR product clonal IGH variable (IGHV) region is performed. Sequences of functional IGHV rearrangements are compared to a germline IGH sequence database to determine the closest IGHV gene exon and percent nucleobase identity. Mutated IGHV status is assigned when the analyzed clonal sequence is greater than 2% different from the germline reference and unmutated status is defined as 2% or less deviation from the reference. This test was developed and its performance characteristics determined by [facility] in a manner consistent with CLIA requirements. This test has not been cleared or approved by the U.S. Food and Drug Administration. Blood 10/24/2024 3:19 PM EDT 10/24/2024 3:28 PM EDT Benjamin Valladares MD LAB BLOOD ORDERABLES Final R esult [facility] DPT OF LAB MED AND PAT+ [address] [place] [address] * CLLBANK 99-224 (10/24/2024 3:19 PM EDT) [facility] Research Test FOR RESEARCH STUDY [facility] LIC# [id number] Blood 10/24/2024 3:19 PM EDT 10/24/2024 3:28 PM EDT Benjamin Valladares MD LAB BLOOD ORDERABLES Final R esult Performing Organization Address City/[facility]/ZIP Co de Phone Number [facility] LIC# [id number] [address] [place] [address] * CLL BANK 2 (10/24/2024 3:19 PM EDT) [facility] Test FOR RESEARCH STUDY [facility] LIC# [id number] Blood 10/24/2024 3:19 PM EDT 10/24/2024 3:27 PM EDT Benjamin Valladares MD LAB BLOOD ORDERABLES Final R esult Performing Organization Address [facility]/ZIP Co de Phone Number [facility] LIC# [id number] [address] [place] [address] * (ABNORMAL) SPEP panel with immunofixation (10/24/2024 3:19 PM EDT) [facility] TOTAL PROTEIN 6.2(L) 6.4 - 8.3 g/dL [facility] SPEP SEE PATHOLOGY REPORT [facility] IMMUNOFIXATION SEE PATHOLOGY REPORT [facility] IgA 39(L) 70 - 400 mg/dL [facility] IMMUNOGLOBULIN G 281(L) 700 - 1,600 mg/dL [facility] IMMUNOGLOBULIN M <15(L) 40 - 230 mg/dL [facility] Blood 10/24/2024 3:19 PM EDT 10/24/2024 3:30 PM EDT Benjamin Valladares MD LAB BLOOD ORDERABLES Final R esult [facility] [address] [place] [address] * LDH (10/24/2024 3:19 PM EDT) LDH 184 135 - 225 U/L [facility] LIC# [id number] Blood 10/24/2024 3:19 PM EDT 10/24/2024 3:28 PM EDT Benjamin Valladares MD LAB BLOOD ORDERABLES Final R esult Performing Organization Address [facility]/ZIP Co de Phone Number [facility] LIC# [id number] [address] [place] [address] * (ABNORMAL) Comprehensive metabolic panel (10/24/2024 3:19 PM EDT) SODIUM 139 136 - 145 mmol/L [facility] LIC# [id number] POTASSIUM 3.5 3.4 - 5.1 mmol/L [facility] LIC# [id number] CHLORIDE 102 98 - 107 mmol/L [facility] LIC# [id number] CO2 23 22 - 31 mmol/L [facility] LIC# [id number] BUN 18 6 - 23 mg/dL [facility] LIC# [id number] CREATININE 0.87 0.50 - 1.20 mg/dL [facility] LIC# [id number] GLUCOSE 102(H) 70 - 100 mg/dL [facility] LIC# [id number] ALBUMIN 4.4 3.5 - 5.2 g/dL [facility] LIC# [id number] TOTAL PROTEIN 6.4 6.4 - 8.3 g/dL [facility] LIC# [id number] CALCIUM 9.5 8.8 - 10.7 mg/dL [facility] LIC# [id number] ALKALINE PHOSPHATASE 88 35 - 104 U/L [facility] LIC# [id number] TOTAL BILIRUBIN 0.8 0.2 - 1.2 mg/dL [facility] LIC# [id number] AST 25 <33 U/L [facility] LIC# [id number] ALT 23 <34 U/L [facility] LIC# [id number] GLOBULIN 2.0(L) 2.3 - 4.2 g/dL [facility] LIC# [id number] EGFR 72 >59 mL/min/1.7 3m2 [facility] LIC# [id number] Comment:Estimated glomerular filtration rate calculated using the CKD-EPI refit equation. ANION GAP 14 7 - 17 mmol/L [facility] LIC# [id number] Blood 10/24/2024 3:19 PM EDT 10/24/2024 3:28 PM EDT us Benjamin Valladares MD LAB BLOOD ORDERABLES Final R esult [facility] LIC# [id number] [address] [place] [address] * (ABNORMAL) 25-OH vitamin D (10/24/2024 3:19 PM EDT) 25 OH VIT D (TOTAL) 58(H) 20 - 50 ng/mL [facility] LIC# [id number] Comment: <10 ng/mL Severe deficiency 10-19 ng/mL Mild to moderate deficiency 20-50 ng/ml Optimum levels 51-80 ng/mL Increased risk of hypercalciuria >80 ng/mL Toxicity possible Blood 10/24/2024 3:19 PM EDT 10/24/2024 3:28 PM EDT us Benjamin Valladares MD LAB BLOOD ORDERABLES Final R esult [facility] LIC# [id number] [address] [place] [address] * (ABNORMAL) CBC and differential (10/24/2024 3:19 PM EDT) WBC 84.29(H) 4.00 - 10.00 K/uL [facility] LIC# [id number] RBC 4.48 3.90 - 6.00 M/uL [facility] LIC# [id number] HGB 12.5 11.5 - 16.4 g/dL [facility] LIC# [id number] HCT 39.8 36.0 - 48.0 % [facility] LIC# [id number] PLT 171 150 - 450 K/uL [facility] LIC# [id number] MCV 88.8 80.0 - 100.0 fL [facility] LIC# [id number] MCH 27.9 27.0 - 32.0 pg [facility] LIC# [id number] MCHC 31.4(L) 32.0 - 36.0 g/dL [facility] LIC# [id number] RDW 15.5(H) 11.5 - 14.5 % [facility] LIC# [id number] MPV 12.2(H) 8.4 - 12.0 fL [facility] LIC# [id number] NRBC 0.00 0 /100 WBCs [facility] LIC# [id number] ABSOLUTE NRBC 0.00 0 K/uL [facility] LIC# [id number] DIFF METHOD MANUAL [facility] LIC# [id number] NEUTS (MANUAL) 8.8(L) 48.0 - 76.0 % [facility] LIC# [id number] LYMPHS 87.6(H) 18.0 - 41.0 % [facility] LIC# [id number] MONOS 0.7(L) 4.0 - 11.0 % [facility] LIC# [id number] EOSINOPHIL 0.0 0.0 - 5.0 % [facility] LIC# [id number] BASOPHIL 0.0 0.0 - 1.5 % [facility] LIC# [id number] BLASTS 0.0 0 % [facility] LIC# [id number] FISSURED LYMPHS 2.9(H) 0 % [facility] LIC# [id number] ABSOLUTE NEUTS 7.42 1.92 - 7.60 K/uL [facility] LIC# [id number] ABSOLUTE LYMPHS 73.84(H) 0.72 - 4.10 K/uL [facility] LIC# [id number] ABSOLUTE MONOS 0.59 0.16 - 1.10 K/uL [facility] LIC# [id number] ABSOLUTE EOS 0.00 0.00 - 0.50 K/uL [facility] LIC# [id number] ABSOLUTE BASO 0.00 0.00 - 0.15 K/uL [facility] LIC# [id number] ABSOLUTE BLASTS 0.00 0 K/uL [facility] LIC# [id number] ABS FISSURED LYMPHS 2.44(H) 0 K/uL [facility] LIC# [id number] VACUOLATED NEUTS [facility] LIC# [id number] ACANTHOCYTES Few [facility] LIC# [id number] ANISO Few [facility] LIC# [id number] POLYCHROME Few [facility] LIC# [id number] SCHISTOCYTES Few [facility] LIC# [id number] TEAR DROPS Few [facility] LIC# [id number] OVALOCYTES Few [facility] LIC# [id number] STOMATOCYTES Few [facility] LIC# [id number] Blood 10/24/2024 3:19 PM EDT 10/24/2024 3:28 PM EDT us Benjamin Valladares MD LAB BLOOD ORDERABLES Final R esult Performing Organization Address [facility]/ZIP Co de Phone Number [facility] LIC# [id number] [address] [place] [address] * (ABNORMAL) Beta-2 microglobulin, blood (10/24/2024 3:19 PM EDT) BETA 2 MICROGLOBULIN 3.5(H) 0.8 - 2.2 mg/L [facility] LIC# [id number] Blood 10/24/2024 3:19 PM EDT 10/24/2024 3:28 PM EDT Benjamin Valladares MD LAB BLOOD ORDERABLES Final R esult Performing Organization Address [facility]/ZIP Co de Phone Number [facility] LIC# [id number] [address] [place] [address] * Protein Electrophoresis (10/24/2024 12:00 AM EDT) 10/24/2024 10/24/2024 Narrative [facility] - 11/04/2024 9:38 PM EDT CASE: [id number] PATIENT: CRISTEL POSEY Date: 1955 Sex: Female [facility] Department of Pathology [address] [place] [address] CLIA License No.: [id number] Executive Officer: Any Umana MD, PhD Resident: Dany Gan M.D., Ph.D. Pathologist: Jason Matt M.D., Ph.D. CLINICAL DATA: Clinical Diagnosis: TEST ORDERED: Serum protein electrophoresis professional interpretation - [facility] 1 Serum immunofixation electrophoresis professional interpretation - [facility] 1 RESULT: Reference range Total Protein 6.2 g/dl (LO) 6.4 - 8.3 g/dL Albumin 3.64 g/dl 3.20 - 5.30 g/dL Alpha 1 0.28 g/dl 0.10 - 0.40 g/dL Alpha 2 1.00 g/dl 0.50 - 1.00 g/dL Beta 0.90 g/dl 0.60 - 1.20 g/dL Gamma 0.39 g/dl (LO) 0.80 - 1.70 g/dL IgG 281 mg/dL (LO) 700 - 1600 mg/dL IgA 39 mg/dL (LO) 70 - 400 mg/dL IgM < 15 (LO) 40 - 230 mg/dL MOST RECENT PRIOR SERUM ELECTROPHORESIS RESULTS: Date Beta Gamma Baraga Lambda K/L IgG IgA IgM MSp1 MSp2 MSp3 g/dl g/dl mg/l mg/l mg/dl mg/dl mg/dl g/dl g/dl g/dl INTERPRETATION: Protein Electrophoresis: -No M-spike detected Hypogammaglobulinemia Immunofixation: -No monoclonal gammopathy By his/her signature below, the senior physician certifies that he/she personally reviewed all the laboratory data of the described specimen(s) and rendered or confirmed the diagnosis(es) related thereto. Final Diagnosis by Jason Matt M.D., Ph.D., Electronically signed on Monday November 04, 2024 at 09:38:08PM us Benjamin Valladares MD PATHOLOGY ORDERABLES Final R esult [facility] [address] [place] [address] * Rapid Heme Panel (10/24/2024 12:00 AM EDT) 10/24/2024 10/25/2024 Narrative [facility] - 11/05/2024 12:13 PM EDT CASE: [id number] PATIENT: CRISTEL POSEY Date: 1955 Sex: Female [facility] Molecular Diagnostics & Histocompatibility Lab [facility] [place] [address] CLIA License #: [id number] Executive Officer: Dr. Thao Hines Physician: BENJAMIN VALLADARES MD Specimen Submitted: Molecular Procedure Date: 10/24/2024 Pathologist: Tito Shepherd M.D., Ph.D. CLINICAL DATA: Clinical History: None given. Clinical Diagnosis: Vitamin D deficiency, unspecified; CLL (chronic lymphocytic leukemia) RESULT: Sample Type: Molec Dx Blood ==== RAPID HEME PANEL ==== QC: PASS Pathogenic Single Nucleotide Variants and Small Insertions/Deletions* BTK c.1442G>C (p.C481S) 7.3% VAF (903x consensus coverage) NOTCH1 c.7541_7542delCT (p.G8214Hot*4) 41.2% VAF (381x consensus coverage) A detailed investigation in igv identified no significant evidence of MYD88 p.L265P, BRAF p.V600E, or SF3B1 p.K700 mutations above the level of noise of the assay. The pipeline did not detect any variants in TP53. *This test is designed for somatic analysis of variants and may provide information about the germline. It cannot distinguish between somatic and germline variants. Germline testing should be ordered separately, as indicated. Copy Number Analysis*: Read count analysis shows no significant copy number alterations in the regions tested. IKZF1 deletion: not detected ERG deletion: not detected KMT2A(MLL)-PTD: not detected *This test assesses only autosomal chromosomal copy number changes. FLT3-ITD Analysis None Detected. This assay has been validated to detect FLT3-ITDs with insert size up to 180 bp. AR (allelic ratio) is approximated as Mutant/Wildtype or Sum(Mutants)/Wildtype and is calculated from the variant allele fraction by the following formula: AR=FLT3-ITD alleles / wild-type alleles. However, the AR may be underestimated for certain ITDs by the technical limitations of the assay and should be considered semi-quantitative only for these cases. The validated limit of ITD detection is 0.01 AR, but lower ARs may be called at the pathologist discretion as clinically indicated. Values <0.01 should be viewed with caution. Other Variants of Unknown Significance (VUS)*: None Detected. *This test is designed for somatic analysis of variants and may provide information about the germline. It cannot distinguish between somatic and germline variants. Germline testing should be ordered separately, as indicated. Some variants on the VUS list may later found to be pathogenic and some may be of germline in nature. The following recurrently mutated codons have wild type sequences only: ABL1 315 BRAF 594 BRAF 595 BRAF 596 BRAF 597 BRAF 600 BRAF 601 CBL 371 CBL 384 CBL 404 CSF3R 615 CSF3R 617 CSF3R 618 DDX41 525 DNMT3A 882 ETNK1 244 FLT3 835 GNAS 201 GNB1 57 IDH1 132 IDH2 140 IDH2 172 JAK2 617 KIT 816 KIT 822 KIT 823 KRAS 12 KRAS 13 KRAS 61 KRAS 146 MAP2K1 57 MAP2K1 121 MPL 505 MPL 515 MYD88 265 NPM1 287 NPM1 288 NRAS 12 NRAS 13 NRAS 61 NRAS 146 PTPN11 60 PTPN11 61 PTPN11 71 PTPN11 72 PTPN11 73 PTPN11 76 SETBP1 868 SF3B1 625 SF3B1 626 SF3B1 662 SF3B1 666 SF3B1 700 SF3B1 742 SRSF2 95 STAT3 640 STAT3 661 U2AF1 34 U2AF1 156 U2AF1 157 XPO1 571 The following recurrently mutated codons have inadequate coverage(<100X): KRAS 12 KRAS 13 INTERPRETATION: QC details*: MTC: 712.4423 TQ493m: 94.68% *MTC > 325 and AS381a > 85% is considered as good quality BTK p.C481S chrX :[id number] MISSENSE Xq22.1: BTK (Maranda's agammaglobulinemia tyrosine kinase) is a cytoplasmic tyrosine kinase that plays an important role in B-cell activation. BTK mutations are uncommon as primary alterations but have been described as a mechanism of acquired resistance to BTK inhibitors. BTK signaling is critical to the growth of B-cell malignancies such as CLL, MCL and DLBCL. Pathogenic mutations are missense mutations involving the kinase domain (e.g., p.C481S and others) at the ibrutinib binding site resulting in reversible inhibition. Germline grbj-id-whvpeuij mutations in BTK are associated with X-linked agammaglobulinemia. (PMIDs: [id number], [id number], [id number]) NOTCH1 p.Y1377Myt*4 chr9 :[id number] [place] 9q34.3: NOTCH1 encodes a member of the Notch family of transmembrane proteins and functions as a receptor for JAG1, JAG2, and DLL1 to regulate cell-fate determination with roles in differentiation, proliferation, and apoptosis. NOTCH1 is recurrently mutated in T-ALL and in a lower percentage of T-NHL, CLL, and MCL as well as other non-hematopoietic neoplasms. Pathogenic mutations are activating mutations involving the extracellular heterodimerization domain, including hotspots in exons 26-27 (the NRR domain), or involving the C-terminal PEST domain, including the hotspot [id number] (PMIDs: [id number], [id number], [id number]) Test Information: The [facility] Rapid Heme Panel (RHP) Assay is a next generation sequencing assay based on the Cuut[employer] Softwaret kit from [employer] A detailed description of the assay is available upon request from [facility], [facility]. Amplification method: Cu[employer] Software[employer] Direct(R), [employer] Assay Version: Rapid Heme Panel V3.0 Genes: Total 88,(183 KB) whole coding sequence for most genes Sequencing platform: Illumina NextSeq 550Dx, 150bp paired-end reads Raw data processing: BWA Mem (v0.7.17) ADRIAN Correction: Fgbio (v0.4.0) Variant Caller: Vardict (v1.6.0) CNV Caller: RobustCNV (internally developed) FLT3-ITD: TsaiITD (internally developed) Data File formats: BAM, VCF Genome version: hg19 Metrics: GATK (v.4.0.5.0) and Magikflixbio (v0.4.0) Variant Annotation: Variant Effect Predictor (v79) Pipeline cutoff: 3 Variant Reads and 1% variant allele frequency. Analytical sensitivity: Varies from locus to locus, but is estimated to be 3.0% at 325x consensus coverage The test performed at [facility] were developed and their performance characteristics determined by the Molecular Diagnostic Laboratory in the Department of Pathology at [facility]. They have not been cleared or approved by the U.S. Food and Drug Administration (FDA). The FDA has determined that such clearance or approval is not necessary. The following regions have insufficient number of sequence reads (<100X) for evaluation. Gene Exon Start End Coverage MATT e40 [id number] 452224079 48.125 ATRX e03 13339330 34115505 48.7625 BRCC3 e2 108635877 437406213 42.253002 CREBBP e01 1367984 8736167 42.617930 e21 6716389 5305303 35.905895 CUX1 e01 815934056 126291654 43.830027 e24 888435371 358837199 45.647587 IDH2 e1 27236844 22792823 20.48151 KMT2A e1 665801558 994742890 19.283056 KRAS e06 49928648 19454490 44.652645 NF1 e24 66137312 43123278 35.125 e36 40887511 55547654 23.753020 PTEN e02 38427817 56105302 22.962474 PTPN11 e14 733034931 924579695 30.210826 RUNX1 e03 84348724 77005243 42.14772 SETD2 e02 54084115 08129078 45.775 SH2B3 e02 028511847 876025529 46.000155 TERT e01 1843106 6977783 12.401437 Targeted Gene/Exon List (genomic coordinates available upon request): The [facility] Rapid Heme Panel (RHP) Assay is a next generation sequencing assay based on the Dynasil kit from [employer] A detailed description of the assay is available upon request from [facility], [facility]. ABL1 [id number] 5 alt e1 ABL1 MESI71327334710 5 e1-e10 ASXL1 DONB08317700300 4 e11-e12 MATT VPZE36504820013 4 e2-e63 ATRX LDDR93969609671 5 e1-e35 BCOR TVHG47629594476 4 e2-e15 BCORL1 QVTX47093842294 1 e1-e12 BCORL1 NM_[id number] 1 alt e8 BRAF OVNN06568372764 6 e12-e16 BRCC3 JEWB65254520164 1 e1-e11 BTK ZIGG68917725279 7 e11,e15-e16 CALR NEAX68962666552 5 e9 CBL RVKK90783362935 4 e7-e9 CCND1 IAUX69848735102 2 e1-e5 CD79B SCEF53907321159 3 e5-e6 CDKN2A BHON05218513128 1 e1-e4 CDKN2A NM_058195 1 alt e1 CDKN2B SEBU18701875107 6 e1-e2 CEBPA MYNW70399672444 2 e1 CREBBP FCXV71348515448 5 e1-e31 CRLF2 GWRA26285400309 3 e5 CSF3R NCVQ34080073736 1 e14-e17 LWLR8F5 CHNW91527649253 2 e1-e10 ZANK1X0 LQYW58415115612 2 alt e5 CTCF FCYB38718159602 4 e3-e12 CUX1 KCGR66880261098 7 e1-e24 CUX1 FWXY07517993087 7 alt e1,e15-e23 CXCR4 HLGM64673199706 3 e3 DDX41 MHOI48189676461 1 e1-e17 DKC1 ECFA92412431805 5 e1-e15 DNMT3A KMTL27396221172 3 alt e1-e2 DNMT3A NYOL83368612051 3 e2-e23 DNMT3A NM_[id number] 3 alt e1 EP300 RVIK59843100313 7 e1-e31 ERG ZNVN88772221536 2 alt e1 ERG NTXI34701762442 2 e3-e12 ERG NM_[id number] 2 alt e12 ETNK1 DFMD00266806619 4 e3 ETV6 ISYX98838654352 4 e1-e8 EZH2 XFGG69122491292 2 e2-e20 FBXW7 CUBS47016209204 4 e10-e14 FLT3 QFEZ94577241753 7 e14,e16-e17,e20 GATA1 YRHE34123439034 3 e2-e6 GATA2 SYYY42232844635 2 e2-e6 GNAS QSCY45515823138 3 e8-e9 GNB1 IELG17632743994 4 e5-e6 IDH1 GIIE27344892318 2 e3-e10 IDH2 XPQC98763428366 3 e1-e11 IKZF1 KOGX04117380920 3 e2-e8 IKZF1 TQZB74567842534 3 alt e4 IKZF1 VIMI95362440412 3 alt e5 IL7R QVWN58651153356 3 e5-e7 JAK1 SARW98105317815 4 e10-e25 JAK2 RSWP03032638567 3 e12-e20 JAK3 IMEM11031019223 1 e16-e24 KIT QCUH01390008464 5 e8-e11,e17 KRAS ZYIX87454151458 3 e2-e6 KRAS EOQG52845534874 3 alt e5 KMT2A WQTC40662313919 1 e1-e13,e24-e26 MAP2K1 SLUC62148486791 5 e2-e3,e6 e28-e30 MPL XMXH42345709646 3 e4,e10 NF1 IIUL98346345016 3 e1-e57 NF1 QIYP49468094462 3 alt e31 MYC BWQS97823812855 2 e1-e3 MYD88 TPOU86325985070 3 e5 NOTCH2 RNUR20393837743 2 e24-e28,e34 NFE2 AVRQ86389713573 1 e3-e4 NOTCH1 OPGY14471485218 6 e24-e28,e34 NSD2 TUFQ20900423418 3 e20-e21 NPM1 JJKF31127518246 5 e10-e11 NRAS XZJQ06173598807 4 e2-e5 PIGA JFOX85755300644 4 e1-e62 NT5C2 CYHC19663817921 5 e10-e18 PHF6 EOLU55627902730 1 e1-e9 PRPF8 QUAH14413960489 6 e25-e34 PLCG2 UPKJ82824807335 3 e18-e19,e23 e26,e29 PPM1D LEIK82042900973 3 e6 RAD21 HPWH14898630148 2 e2-e14 PTEN SCWD82039446670 3 e1-e9 PTPN11 LCWD92784982639 2 e1-e15 SBDS YKFS95955329874 2 e1-e5 RIT1 FXFC16057425590 3 alt e1 RIT1 SVJF27872311279 3 e2-e6 RUNX1 HMMD18512737596 1 e2-e9 RUNX1 SCPM70080855613 1 alt e5 SF3B1 WPDP72817073959 6 e12-e18 SETBP1 RSPX64745254821 5 e4 SETD2 ZZEA15095027721 3 e1-e21 SMC3 XANQ44419858697 4 e1-e29 SH2B3 DZNP78796132986 2 alt e1 SH2B3 LUUO89429191153 2 e2-e8 SMC1A GYAG76439159220 4 e1-e25 SMC1A NM_001281463 4 alt e2 STAT3 IUSM71841802776 5 e2-e24 SRSF2 EFYL86815485576 5 e1 STAG2 CQXR26333393086 9 e3-e35 TERT WAPC27191554432 5 e1-e16 STAT5B ETUH99579838139 3 e13-e19 TERC OKZC84676544613 1 e1 U2AF1 RFMJ42811608905 4 e2,e6 TET2 JBQD38545637940 4 e3-e11 TP53 IGNO44999403329 4 e2-e11 TP53 ZKGM25658073337 4 alt e10 ZRSR2 WXZV83850957036 7 e1-e11 WT1 CMTX78069561907 3 alt e1 WT1 CSVY20935365054 3 e1-e10 XPO1 OPQO01911118416 2 e15-e16 The test performed at [facility] were developed and their performance characteristics determined by the Molecular Diagnostic Laboratory in the Department of Pathology at [facility]. They have not been cleared or approved by the U.S. Food and Drug Administration (FDA). The FDA has determined that such clearance or approval is not necessary. By his/her signature below, the senior physician certifies that he/she personally reviewed all the laboratory data of the described specimen(s) and rendered or confirmed the diagnosis(es) related thereto. Final Diagnosis by Tito Shepherd M.D., Ph.D., Electronically signed on Tuesday November 05, 2024 at 12:12:26PM us Benjamin Valladares MD PATHOLOGY ORDERABLES Final R esult [facility] [address] [place] [address] * Cytogenetics (10/24/2024 12:00 AM EDT) 10/24/2024 10/25/2024 Narrative [facility] - 10/30/2024 11:04 AM EDT CASE: [id number] PATIENT: CRISTEL POSEY Date: 1955 Sex: Female [facility] Department of Pathology [address] [place] [address] CLIA License No.: [id number] Executive Officer: Libby Goff, PhD, [facility] Physician: BENJAMIN VALLADARES MD Specimen Submitted: cg-Leukemic Blood ~SP_Collection_date Copper Plate Printer: Janelle Ph.D., Keyanna RESULTS: nuc fadumo(CCND1,IGH)x2[200],(MATT,TP53)x2[200], (D12Z3,Q48J691,OGC89h25)x2[200] CELLS CULTURED: YES METAPHASES COUNTED: N/A ANALYZED: N/A SCORED: N/A BANDING: FISH INTERPRETATION: Interphase FISH analysis of 200 nuclei from this CpG-stimulated peripheral blood specimen showed NO deletions of MATT (11q), 13q or TP53 (17p) and did NOT show trisomy 12 or IGH::CCND1 rearrangement. See additional details below. Karyotype analysis is pending and may identify aberrations not detected by FISH. Results will be issued as an addendum to this report. FISH was performed on 200 nuclei from a 3-day CpG-stimulated culture with the Vysis CLL FISH Probe kit and the Vysis LSI IGH/CCND1 Dual Color, Dual Fusion Translocation Probe ([employer]) and is interpreted as NORMAL. No aberrations were observed with the: 1. MATT probe at 11q22.3. Two hybridization signals were identified in 200/200 nuclei (normal range up to 4% deleted); 2. D12Z3 probe at 12p11.1-q11.1. Two hybridization signals were identified in 200/200 nuclei (normal range up to 1% trisomy); 3. B51H565 probe at 13q14.3. Two hybridization signals were identified in 198/200 nuclei (normal range up to 4% deleted); 4. TP53 probe at 17p13.1. Two hybridization signals were identified in 190/200 nuclei (normal range up to 10% deleted); and, 5. LSI IGH/CCND1 Probe at 14q32 and 11q13, respectively. No rearrangement was identified in 200/200 nuclei (normal range up to 2% rearranged). A normal FISH finding can result from the absence of a deletion, rearrangement or trisomy or from an insufficient number of neoplastic cells in the specimen. COMMENTS: This FISH test was developed and its performance determined by the [facility] as required by the CLIA '88 regulations. It has not been cleared or approved by the U.S. Food and Drug Administration. This test is used for clinical purposes. INDICATION FOR TEST: Vitamin D deficiency, unspecified; CLL (chronic lymphocytic leukemia) A portion of this testing process was performed at [facility] site: [email or web address]. REPORT by Keyanna Luis Ph.D., on Wednesday October 30, 2024 at 11:03:21AM Final Diagnosis by Keyanna Luis Ph.D., Electronically signed on Wednesday October 30, 2024 at 11:03:29AM us Benjamin Valladares MD PATHOLOGY ORDERABLES Final R esult [facility] [address] [place] [address] from Last 3 Months Insurance [employer] PPO MEDICARE REPLACEMENT [employer] P[employer] MEDICARE REPLACEMENT [employer] P[employer] MEDICARE REPLACEMENT [employer] P[employer] MEDICARE REPLACEMENT [employer] P[employer] MEDICARE REPLACEMENT [employer] P[employer] MEDICARE REPLACEMENT Care Teams Planning Intern Relationship Specialty Start Date End Date Yas Madera MD [address] [place] [phone] [email or web address] PCP - General Family Medicine 07/15/24 Eriberto Galindo MD [address] [place] [phone] [email or web address] Internal Medicine 07/15/24 Additional Source Comments The information contained in this document represents components of the legal health record. It is not the complete legal health record.[facility]
== END 2024-11-06 11:06 | disposition home or self-care (01) ==
LOC: HO.RHES 10:05
PROVIDERS: PCP Internal Medicine Rheumatology; Visit Provider Internal Medicine Rheumatology
DX: M11.20 Other chondrocalcinosis, unspecified site (principal); M65.331 Trigger finger, right middle finger; Z79.899 Other long term (current) drug therapy
CPT/HCPCS: 99214; G2211